=== PATIENT | male | born 1985 | race Caucasian/White ===

== ENCOUNTER → 2022-02-27 | Outpatient (CLI) | payer OTHER ==
[2022-02-27 18:26] LABS: HCT 37.1 % (39.6-50.0); HGB 11.6 g/dL (13.0-17.0); MCH 35.7 pg (27.0-32.0); MCHC 31.3 g/dL (32.0-37.0); MCV 114.2 fL (80.0-97.0); Mean Platelet Volume 12.5 fL (9.5-12.2); NRBC Per 100 WBC 0 /100 WBCS (0.0-0.0); Platelet Count 228 X 10*3/uL (140-440); RBC 3.25 X 10*6/uL (4.40-5.60); WBC 16.45 X 10*3/uL (4.50-10.00)
[2022-02-27 18:51] LABS: % Iron Saturation 24.26 (15.00-50.00); African American GFR (CKD) 135.5 (60.0-200.0); Albumin/Globulin Ratio 1.28 (1.60-3.17); Blood Urea Nitrogen 13.5 mg/dL (9.0-27.0); Carbon Dioxide 22.5 mmol/L (20.0-27.5); Globulin 3.1 g/dL (1.6-3.3); Non-African American GFR(CKD) 116.9 (60.0-200.0); Potassium 4.5 mmol/L (3.5-5.5); Total Bilirubin 0.5 mg/dL (0.30-1.20); Total Protein 7.1 g/dL (6.2-8.2)
[2022-02-27 19:08] LABS: Basophils # (A) 0.14 X 10*3/uL (0.00-0.10); Basophils % (A) 0.9 %; Eosinophils # (A) 0.28 X 10*3/uL (0.04-0.35); Eosinophils % (A) 1.7 %; Immature Grans, Automated 0.9 %; Lymphocytes # (A) 2.72 X 10*3/uL (0.90-5.00); Lymphocytes % (A) 16.5 %; Monocytes # (A) 0.86 X 10*3/uL (0.20-1.00); Monocytes % (A) 5.2 %; Neutrophils # (A) 12.31 X 10*3/uL (1.80-7.70); Neutrophils % (A) 74.8 %
[2022-02-27 19:09] LABS: Macrocytosis (M) 3+
== END | disposition home or self-care (01) ==
LOC: LABWHC1 11:52
PROVIDERS: ATTEND Family Medicine
DX: D62 Acute posthemorrhagic anemia (principal); K76.6 Portal hypertension; K31.89 Other diseases of stomach and duodenum; R53.1 Weakness
CPT/HCPCS: 36415; 80053; 82306; 82607; 82746; 83540; 83550; 84466; 85025

== ENCOUNTER 2022-03-22 14:35 | Emergency (ER) | payer OTHER ==
[2022-03-22 14:49] VITALS: TEMP 98.8
[2022-03-22 15:13] VITALS: BP 114/79; PULSE 77; RESP 16
--- NOTE | 2022-03-22 15:15 | ED ---
General Adult HPI - General Chief complaint: Abdominal Pain Stated complaint: Lump on L side Time Seen by Provider: 03/22/22 15:14 Source: patient Mode of arrival: wheelchair Limitations: no limitations - History of Present Illness Initial comments: Patient presents to the ED with his father for evaluation. Patient states that he developed sudden onset, left inferolateral chest wall pain when he attempted to sit up from a laying position this morning. Patient states that he felt "a pop" at that time, and he states that he has had pain there ever since. Patient states that his pain is worse with coughing, deep inspiration, sneezing, and changes in position. Patient denies direct chest trauma or fall. Patient denies fever or chills, headache, focal neuro deficit, neck/arm/jaw/back pain, dyspnea, cough or cold symptoms, palpitations, dizziness, abdominal pain, nausea/vomiting/diarrhea, dysuria or urinary symptoms, leg or calf swelling or pain, or any other symptoms or complaints. - Related Data Home Medications Medication Instructions Recorded Confirmed Acamprosate Calcium [Campral] 666 mg PO BID 03/22/22 03/22/22 Cyanocobalamin (Vitamin B-12) 1,000 mcg PO DAILY 03/22/22 03/22/22 [Vitamin B-12] Folic Acid 1 mg PO DAILY 03/22/22 03/22/22 HYDROcodone/APAP 5-325MG [[place] 1 tab PO DAILY PRN 03/22/22 03/22/22 5-325] Magnesium Oxide [Mag-Ox] 400 mg PO BID 03/22/22 03/22/22 Multivitamins, Thera [Multivitamin 1 tab PO DAILY 03/22/22 03/22/22 (formulary)] Pantoprazole [Protonix] 40 mg PO BID 03/22/22 03/22/22 Thiamine [Vitamin B-1] 100 mg PO DAILY 03/22/22 03/22/22 aMILoride HCL 5 mg PO BID 03/22/22 03/22/22 calcitrioL [Calcitriol] 0.25 mcg PO DAILY 03/22/22 03/22/22 Allergies Allergy/AdvReac Type Severity Reaction Status Date / Time No Known Allergies Allergy Verified 03/22/22 16:25 Review of Systems ROS Statement: Those systems with pertinent positive or pertinent negative responses have been documented in the HPI. ROS Other: All systems not noted in ROS Statement are negative. Past Medical History Past Medical History: Hypertension History of Any Multi-Drug Resistant Organisms: None Reported Past Surgical History: No Surgical Hx Reported, Back Surgery, Orthopedic Surgery Past Psychological History: Anxiety, Bipolar, Depression, Schizophrenia Smoking Status: Current every day smoker Past Alcohol Use History: Daily Past Drug Use History: Marijuana General Exam Limitations: no limitations General appearance: alert, in no apparent distress Head exam: Present: atraumatic, normocephalic Eye exam: Present: normal appearance, EOMI ENT exam: Present: mucous membranes moist Neck exam: Present: other (Trachea is in midline) Respiratory exam: Present: normal lung sounds bilaterally, other (Reproducible left inferolateral chest wall tenderness with mild overlying swelling and ecchymosis; no chest wall crepitation or deformity is appreciated). Absent: respiratory distress, wheezes, rales, rhonchi, stridor Cardiovascular Exam: Present: regular rate, normal rhythm, normal heart sounds, other (Normal radial pulses bilaterally) GI/Abdominal exam: Present: soft. Absent: distended, tenderness, guarding Extremities exam: Present: other (Negative Homans sign bilaterally). Absent: tenderness, pedal edema, calf tenderness Neurological exam: Present: alert, oriented X3. Absent: motor sensory deficit Psychiatric exam: Present: normal affect, normal mood Skin exam: Present: warm, dry, intact Course Vital Signs 03/22/22 03/22/22 14:41 15:12 Temperature 98.8 F Pulse Rate 111 H 77 Respiratory 18 16 Rate Blood Pressure 82/48 114/79 O2 Sat by Pulse 98 97 Oximetry - Reevaluation(s) Reevaluation #1: 03/22/22 16:59 Patient remains alert and breathing comfortably. Patient denies development of any new symptoms while in the ED. Patient and father are aware of the patient's x-ray findings. I have explained to the patient that he has sustained a left seventh rib fracture. I again asked the patient if he could've potentially fallen recently, as simply sitting up from a laying position likely would not have caused a rib fracture. Patient's father states that the patient did fall yesterday while intoxicated, and patient does not recall this fall. Patient and father were counseled about rib fractures, and they were clearly explained return and follow-up instructions. Patient feels comfortable being discharged home with his father at this time. Patient was instructed to follow up closely with a primary care provider. Patient feels comfortable with this plan. Will discharge patient home with a starter pack of Tylenol #3, as well as an incentive spirometer. Medical Decision Making - Radiology Data Left rib x-rays: Acute fracture left seventh rib. Disposition Clinical Impression: Fracture of rib of left side Disposition: HOME SELF-CARE Condition: Stable Instructions (If sedation given, give patient instructions): Rib Fracture (ED) Additional Instructions: Return to the ER immediately should you develop new or worsening pain, shortness of breath, feeling dizzy or faint, or new or worsening symptoms. Follow up closely with your primary care provider. Is patient prescribed a controlled substance at d/c from ED?: No Referrals: None,Stated [Primary Care Provider] - 1-2 days Adrien Chang MD [STAFF PHYSICIAN] - 1-2 days Time of Disposition: 17:04
--- NOTE | 2022-03-22 16:01 | XR ---
EXAMINATION TYPE: XR ribs LT w pa chest xray DATE OF EXAM: 03/22/2022 COMPARISON: NONE HISTORY: Pain TECHNIQUE: 5 views FINDINGS: There is no pleural effusion or pneumothorax. Heart and mediastinum are normal. Lungs are c lear of infiltrate. There is deformity of the left sixth and seventh ribs related to fractures. There is acute fracture l eft lateral seventh rib. Left sixth rib fracture is probably old. IMPRESSION: Acute fracture left seventh rib.
[2022-03-22] MEDS ORDERED: ACET/COD 300 MG/30 MG STARTER PACK 6 TAB BTL PO STA (16:54)
== END 2022-03-22 17:14 | disposition home or self-care (01) ==
LOC: EC 14:35
DX: S22.32XA Fracture of one rib, left side, initial encounter for closed fracture (principal); I10 Essential (primary) hypertension; F17.200 Nicotine dependence, unspecified, uncomplicated; X50.9XXA Other and unspecified overexertion or strenuous movements or postures, initial encounter

== ENCOUNTER 2022-08-20 18:48 | Inpatient (IN) | payer OTHER ==
[2022-08-20] MEDS ORDERED: SODIUM CHLORIDE 0.9% 1,000 ML IV STA (22:34)
--- NOTE | 2022-08-20 22:35 | ED ---
Recheck HPI - General Chief Complaint: Recheck/Abnormal Lab/Rx Stated Complaint: Abnormal labs,sent by [facility] chron[facility] illed [facility] Time Seen by Provider: 08/20/22 22:33 Source: patient, RN notes reviewed, old records reviewed Mode of arrival: ambulatory Limitations: no limitations - History of Present Illness Initial Comments: This is a 36-year-old male to the emergency department for evaluation presents today for evaluation in regards to altered, abnormal lab values. Low platelets alcohol abuse and from [place] where hes in rehab for alcohol MD Complaint: abnormal lab -: unknown Returns Today for: Called Because of Abnormal Lab/Test Context: planned re-check, called for abnormal lab result Associated Symptoms: none Treatments Prior to Arrival: other (0) - Related Data Home Medications Medication Instructions Recorded Confirmed Acamprosate Calcium [Campral] 666 mg PO BID 03/22/22 03/22/22 Cyanocobalamin (Vitamin B-12) 1,000 mcg PO DAILY 03/22/22 03/22/22 [Vitamin B-12] Folic Acid 1 mg PO DAILY 03/22/22 03/22/22 HYDROcodone/APAP 5-325MG [[place] 1 tab PO DAILY PRN 03/22/22 03/22/22 5-325] Magnesium Oxide [Mag-Ox] 400 mg PO BID 03/22/22 03/22/22 Multivitamins, Thera [Multivitamin 1 tab PO DAILY 03/22/22 03/22/22 (formulary)] Pantoprazole [Protonix] 40 mg PO BID 03/22/22 03/22/22 Thiamine [Vitamin B-1] 100 mg PO DAILY 03/22/22 03/22/22 aMILoride HCL 5 mg PO BID 03/22/22 03/22/22 calcitrioL [Calcitriol] 0.25 mcg PO DAILY 03/22/22 03/22/22 Allergies Allergy/AdvReac Type Severity Reaction Status Date / Time No Known Allergies Allergy Verified 03/22/22 16:25 Review of Systems ROS Statement: Those systems with pertinent positive or pertinent negative responses have been documented in the HPI. ROS Other: All systems not noted in ROS Statement are negative. Past Medical History Past Medical History: Hypertension Additional Past Medical History / Comment(s): etoh abuse History of Any Multi-Drug Resistant Organisms: None Reported Past Surgical History: No Surgical Hx Reported, Back Surgery, Orthopedic Surgery Past Psychological History: Anxiety, Bipolar, Depression, Schizophrenia Smoking Status: Current every day smoker Past Alcohol Use History: Daily Past Drug Use History: Marijuana General Exam Limitations: no limitations General appearance: alert, in no apparent distress Head exam: Present: atraumatic, normocephalic, normal inspection Eye exam: Present: normal appearance, PERRL, EOMI. Absent: scleral icterus, conjunctival injection, periorbital swelling ENT exam: Present: normal exam, mucous membranes moist Neck exam: Present: normal inspection. Absent: tenderness, meningismus, lymphadenopathy Respiratory exam: Present: normal lung sounds bilaterally. Absent: respiratory distress, wheezes, rales, rhonchi, stridor Cardiovascular Exam: Present: regular rate, normal rhythm, normal heart sounds. Absent: systolic murmur, diastolic murmur, rubs, gallop, clicks GI/Abdominal exam: Present: soft, normal bowel sounds. Absent: distended, tenderness, guarding, rebound, rigid Extremities exam: Present: normal inspection, full ROM, normal capillary refill. Absent: tenderness, pedal edema, joint swelling, calf tenderness Back exam: Present: normal inspection Neurological exam: Present: alert, oriented X3, CN II-XII intact Psychiatric exam: Present: normal affect, normal mood Skin exam: Present: warm, dry, intact, normal color. Absent: rash Course Vital Signs 08/20/22 08/20/22 19:23 23:14 Temperature 98.4 F Pulse Rate 93 79 Respiratory 16 16 Rate Blood Pressure 122/84 136/99 O2 Sat by Pulse 97 97 Oximetry - Reevaluation(s) Reevaluation #1: 08/20/22 23:32 Medical records reviewed Reevaluation #2: 08/21/22 00:05 patient with no change here in the ED Reevaluation #3: 08/21/22 00:05 patient informed of results and uestions answered - Consultations Consultation #1: spoke w CARIE dary for admission Medical Decision Making - Medical Decision Making 36 male to the emergency department for evaluation of thrombocytopenia secondary to alcohol abuse, patient be observation and for resuscitation possible alcohol withdrawal, recheck of lab values - Lab Data Result diagrams: 08/20/22 23:11 08/20/22 23:11 Lab Results 08/20/22 08/20/22 08/20/22 Range/Units 23:11 23:11 23:11 WBC 3.3 L (3.8-10.6) k/uL RBC 2.98 L (4.30-5.90) m/uL Hgb 11.5 L (13.0-17.5) gm/dL Hct 35.8 L (39.0-53.0) % MCV 120.3 H (80.0-100.0) fL MCH 38.6 H (25.0-35.0) pg MCHC 32.1 (31.0-37.0) g/dL RDW 14.4 (11.5-15.5) % Plt Count 72 L (150-450) k/uL MPV 11.7 Neutrophils % [employer]IC[employer] HELPER Neutrophils % (Manual) 61 % Band Neuts % (Manual) 2 % Lymphocytes % [employer] SERVICER HELPER Lymphocytes % (Manual) 17 % Monocytes % [employer] SERVICER HELPER Monocytes % (Manual) 20 % Eosinophils % [employer]OVE SERVICER HELPER Basophils % [employer]OVE SERVICER HELPER Neutrophils # [employer] SERVICER HELPER Neutrophils # (Manual) 2.00 (1.3-7.7) k/uL Lymphocytes # [employer] SERVICER HELPER Lymphocytes # (Manual) 0.56 L (1.0-4.8) k/uL Monocytes # [employer] SERVICER HELPER Monocytes # (Manual) 0.66 (0-1.0) k/uL Eosinophils # [employer]OVE SERVICER HELPER Basophils # [employer] SERVICER HELPER Nucleated RBCs 0 (0-0) /100 WBC Manual Slide Review Performed Polychromasia Present Macrocytosis Marked A Sodium 139 (137-145) mmol/L Potassium 3.3 L (3.5-5.1) mmol/L Chloride 110 H (98-107) mmol/L Carbon Dioxide 15 L (22-30) mmol/L Anion Gap 14 mmol/L BUN 16 (9-20) mg/dL Creatinine 1.05 (0.66-1.25) mg/dL Est GFR (CKD-EPI)AfAm >90 (>60 ml/min/1.73 sqM) Est GFR (CKD-EPI)NonAf >90 (>60 ml/min/1.73 sqM) Glucose 95 (74-99) mg/dL Plasma Lactic Acid Wily 1.1 (0.7-2.0) mmol/L Calcium 9.4 (8.4-10.2) mg/dL Phosphorus 3.5 (2.5-4.5) mg/dL Magnesium 1.8 (1.6-2.3) mg/dL Total Bilirubin 1.7 H (0.2-1.3) mg/dL AST 405 H (17-59) U/L ALT 120 H (4-49) U/L Alkaline Phosphatase 323 H (38-126) U/L Total Protein 7.1 (6.3-8.2) g/dL Albumin 4.0 (3.5-5.0) g/dL Lipase 406 H (23-300) U/L Serum Alcohol <10 mg/dL - EKG Data -: EKG Interpreted by Me (EKG is sinus 77 KS 165 QRS 102 QTC 417) Disposition Clinical Impression: Hypokalemia, Pancreatitis, Thrombocytopenia, Alcohol abuse Disposition: ADMITTED IP TO THIS HOSP Condition: Fair Is patient prescribed a controlled substance at d/c from ED?: No Referrals: None,Stated [Primary Care Provider] - 1-2 days Time of Disposition: 00:05
[2022-08-20 23:32] LABS: ALT 120 U/L (4-49); AST 405 U/L (17-59); African American GFR (CKD) >90 (>60 ml/min/1.73 sqM); Alcohol <10 mg/dL; Alkaline Phosphatase 323 U/L (38-126); Anion Gap 14 mmol/L; Blood Urea Nitrogen 16 mg/dL (9-20); Calcium 9.4 mg/dL (8.4-10.2); Carbon Dioxide 15 mmol/L (22-30); Chloride 110 mmol/L (98-107); Glucose 95 mg/dL (74-99); Lipase 406 U/L (23-300); Magnesium 1.8 mg/dL (1.6-2.3); Non-African American GFR(CKD) >90 (>60 ml/min/1.73 sqM); Phosphorus 3.5 mg/dL (2.5-4.5); Potassium 3.3 mmol/L (3.5-5.1); Sodium 139 mmol/L (137-145); Total Bilirubin 1.7 mg/dL (0.2-1.3); Total Protein 7.1 g/dL (6.3-8.2)
[2022-08-20 23:45] LABS: HCT 35.8 % (39.0-53.0); HGB 11.5 gm/dL (13.0-17.5); MCH 38.6 pg (25.0-35.0); MCHC 32.1 g/dL (31.0-37.0); MCV 120.3 fL (80.0-100.0); Macrocytosis Marked; Mean Platelet Volume 11.7; RBC 2.98 m/uL (4.30-5.90); RDW 14.4 % (11.5-15.5); WBC 3.3 k/uL (3.8-10.6)
[2022-08-20 23:50] LABS: Platelet Count 72 k/uL (150-450)
[2022-08-20 23:59] LABS: Band Neutrophils % 2 %; Lymphocytes # (M) 0.56 k/uL (1.0-4.8); Monocytes # (M) 0.66 k/uL (0-1.0); Neutrophils % (M) 61 %; Nucleated Red Blood Cells 0 /100 WBC (0-0); Polychromasia Present; Total Cells Counted 100
[2022-08-21] MEDS ORDERED: NALOXONE 0.4 MG/ML 1 ML VIAL IV PRN (00:03)
[2022-08-21] MEDS ORDERED: LORazepam 2 MG/ML INJ IV PRN ×3 (00:03)
[2022-08-21] MEDS ORDERED: ONDANSETRON 4 MG/2 ML VIAL IVP PRN (00:03)
[2022-08-21] MEDS ORDERED: THIAMINE 100 MG/ML 2 ML VIAL IM STA (00:03)
[2022-08-21] MEDS ORDERED: POTASSIUM BICARBONATE/CIT AC 20 MEQ TABLET.EFF PO ONE (00:07)
[2022-08-21] MEDS: SODIUM CHLORIDE 0.9% 1,000 ML IV SCH ×3 (01:11→16:10)
[2022-08-21] MEDS: MULTIVITAMINS, THERA 1 EACH TAB PO SCH (09:33)
[2022-08-21] MEDS: THIAMINE 100 MG TAB PO SCH (09:33)
[2022-08-21] MEDS: FOLIC ACID 1 MG TAB PO SCH (09:33)
--- NOTE | 2022-08-21 11:35 | P.HP ---
Psychiatric H&P - . H&P Date: 08/21/22 History & Physical: Allergies Allergy/AdvReac Type Severity Reaction Status Date / Time No Known Allergies Allergy Verified 08/21/22 07:05 Vital Signs Temp 99.8 F H 08/21/22 07:45 Pulse 89 08/21/22 07:45 Resp 16 08/21/22 07:45 BP 137/73 08/21/22 07:45 Pulse Ox 96 08/21/22 07:45 FiO2 Intake & Output 08/20/22 08/21/22 08/21/22 18:59 06:59 18:59 Weight 54.431 kg Other: # Voids 2 Laboratory Last Values WBC 3.3 k/uL (3.8-10.6) L 08/20/22 23:11 RBC 2.98 m/uL (4.30-5.90) L 08/20/22 23:11 Hgb 11.5 gm/dL (13.0-17.5) L 08/20/22 23:11 Hct 35.8 % (39.0-53.0) L 08/20/22 23:11 MCV 120.3 fL (80.0-100.0) H 08/20/22 23:11 MCH 38.6 pg (25.0-35.0) H 08/20/22 23:11 MCHC 32.1 g/dL (31.0-37.0) 08/20/22 23:11 RDW 14.4 % (11.5-15.5) 08/20/22 23:11 Plt Count 72 k/uL (150-450) L 08/20/22 23:11 MPV 11.7 08/20/22 23:11 Neutrophils % IMMIGRATION SPECIALIST 08/20/22 23:11 Neutrophils % (Manual) 61 % 08/20/22 23:11 Band Neuts % (Manual) 2 % 08/20/22 23:11 Lymphocytes % IMMIGRATION SPECIALIST 08/20/22 23:11 Lymphocytes % (Manual) 17 % 08/20/22 23:11 Monocytes % IMMIGRATION SPECIALIST 08/20/22 23:11 Monocytes % (Manual) 20 % 08/20/22 23:11 Eosinophils % IMMIGRATION SPECIALIST 08/20/22 23:11 Basophils % IMMIGRATION SPECIALIST 08/20/22 23:11 Neutrophils # IMMIGRATION SPECIALIST 08/20/22 23:11 Neutrophils # (Manual) 2.00 k/uL (1.3-7.7) 08/20/22 23:11 Lymphocytes # IMMIGRATION SPECIALIST 08/20/22 23:11 Lymphocytes # (Manual) 0.56 k/uL (1.0-4.8) L 08/20/22 23:11 Monocytes # IMMIGRATION SPECIALIST 08/20/22 23:11 Monocytes # (Manual) 0.66 k/uL (0-1.0) 08/20/22 23:11 Eosinophils # IMMIGRATION SPECIALIST 08/20/22 23:11 Basophils # IMMIGRATION SPECIALIST 08/20/22 23:11 Nucleated RBCs 0 /100 WBC (0-0) 08/20/22 23:11 Manual Slide Review Performed 08/20/22 23:11 Polychromasia Present 08/20/22 23:11 Macrocytosis Marked A 08/20/22 23:11 Sodium 139 mmol/L (137-145) 08/20/22 23:11 Potassium 3.3 mmol/L (3.5-5.1) L 08/20/22 23:11 Chloride 110 mmol/L (98-107) H 08/20/22 23:11 Carbon Dioxide 15 mmol/L (22-30) L 08/20/22 23:11 Anion Gap 14 mmol/L 08/20/22 23:11 BUN 16 mg/dL (9-20) 08/20/22 23:11 Creatinine 1.05 mg/dL (0.66-1.25) 08/20/22 23:11 Est GFR (CKD-EPI)AfAm >90 (>60 ml/min/1.73 sqM) 08/20/22 23:11 Est GFR (CKD-EPI)NonAf >90 (>60 ml/min/1.73 sqM) 08/20/22 23:11 Glucose 95 mg/dL (74-99) 08/20/22 23:11 Plasma Lactic Acid Wily 1.1 mmol/L (0.7-2.0) 08/20/22 23:11 Calcium 9.4 mg/dL (8.4-10.2) 08/20/22 23:11 Phosphorus 3.5 mg/dL (2.5-4.5) 08/20/22 23:11 Magnesium 1.8 mg/dL (1.6-2.3) 10/12/22 23:11 Total Bilirubin 1.7 mg/dL (0.2-1.3) H 08/20/22 23:11 AST 405 U/L (17-59) H 08/20/22 23:11 ALT 120 U/L (4-49) H 08/20/22 23:11 Alkaline Phosphatase 323 U/L (38-126) H 08/20/22 23:11 Ammonia 66 umol/L (<30) H 08/21/22 00:07 Total Protein 7.1 g/dL (6.3-8.2) 08/20/22 23:11 Albumin 4.0 g/dL (3.5-5.0) 08/20/22 23:11 Lipase 406 U/L (23-300) H 08/20/22 23:11 Serum Alcohol <10 mg/dL 08/20/22 23:11 08/21/22 11:35 IDENTIFYING DATA: This patient is a legally , currently unemployed, 36-year-old male with significant history of alcohol use disorder presented to the hospital from [facility] for thrombocytopenia HISTORY OF PRESENT ILLNESS: The patient presented to the hospital on 08/20/2022, brought in to our hospital from [place] due to having abnormal labs. Patient is noted to be Thrombocytopenic and was brought to the ED. Psychiatry and consulted for "psych." Currently, the patient is not reporting any suicidal or homicidal ideation, intention, and/or plan. He is future and goal oriented and is expressing strong desire to quit alcohol that he may be able to deal with the ongoing separation with his significant other. He reports the children are involved and therefore he wants to become the best person he can be by quitting alcohol. He reports that he has been in [place] for the past week and is also involved in AA and NA. The patient is currently denying any withdrawal symptoms. He reports no delirium tremens or any seizures at this time. In reg ards to other psychiatric symptoms, the patient is denying any symptoms of merlin or hypomania. He reports no history of auditory or visual hallucinations. He denies any paranoia or other delusions. He states that he is here in the hospital for a medical workup due to his low platelets and for no other reason. PAST PSYCHIATRIC HISTORY: Patient has a history of anxiety, bipolar disorder, depression, and schizophrenia however this is compounded by his ongoing substance abuse. The patient is currently on a regimen of campral at home. Patient denies any previous psychiatric hospitalizations. Patient denies any psychiatric outpatient follow-up. Patient denies any history of suicide attempts in the past. PAST MEDICAL HISTORY: Past Medical History: Hypertension Additional Past Medical History / Comment(s): etoh abuse History of Any Multi-Drug Resistant Organisms: None Reported Past Surgical History: No Surgical Hx Reported, Back Surgery, Orthopedic Surgery Past Psychological History: Anxiety, Bipolar, Depression, Schizophrenia Smoking Status: Current every day smoker Past Alcohol Use History: Daily Past Drug Use History: Marijuana ALLERGIES: NO KNOWN DRUG ALLERGIES CHEMICAL DEPENDENCY HISTORY: Patient's drug of choice is whiskey. The patient reports that he has been drinking up to a gallon of whiskey per day prior to checking in at rehab. He also reports occasional marijuana use and tobacco use. He denies any other illicit drug use. FAMILY PSYCHIATRIC/SUBSTANCE USE HISTORY: No reported family psychiatric history SOCIAL HISTORY: Patient is currently in the process of with his . He reports that he has 2 kids. MENTAL STATUS EXAM: General Appearance: Patient appears to be stated age is alert, pleasant, and cooperative. Patient appears to have fair hygiene and grooming wearing hospital gown with fair eye contact. Behavior: Patient is calmly lying in bed without any agitated behavior. Speech: Patient's speech is fluent and nonpressured. Mood/Affect: Patient reports their mood is "doing all right", affect is congruent and euthymic Suicidality/Homicidality: Patient denies having any suicidal or homicidal ideation intent or plan. Perceptions: Patient denies any visual hallucinations and denies any auditory hallucinations Though content/process: There is no evidence of any delusional thought content and thought process is linear and goal-directed. Memory and concentration: AOX3, grossly intact for the purposes of this session. Can spell "WORLD" backwards Judgment and insight: good IMPRESSIONS: Alcohol use disorder Thrombocytopenia PLAN: -At this time patient DOES NOT meet criteria for inpatient psychiatric admission. Patient is not presenting with any imminent risk of harm to self or others. He is currently alert and oriented in all spheres and is calm and cooperative throughout the psychiatric evaluation. The patient continues to desire to receive substance abuse treatment and rehabilitation. -Would recommend the following medication changes/additions: No medication recommendations were made at this time. Consider the reinitiation of Compral when deemed appropriate. -Continue 1:1 sitter for safety -Psychiatry will sign off at this point, please contact with any questions. 08/21/22 11:35
--- NOTE | 2022-08-21 13:13 | P.CN ---
Psychiatric Consult - . Consult date: 08/21/22 Consult:: 08/21/22 13:12 Entering this note as a correction in note type for Dr Fall. Please see consult note below performed and reported by Dr Fall on 08/21 "IDENTIFYING DATA: This patient is a legally , currently unemployed, 36-year-old male with significant history of alcohol use disorder presented to the hospital from [facility] for thrombocytopenia HISTORY OF PRESENT ILLNESS: The patient presented to the hospital on 08/20/2022, brought in to our hospital from [place] due to having abnormal labs. Patient is noted to be Thrombocytopenic and was brought to the ED. Psychiatry and consulted for "psych." Currently, the patient is not reporting any suicidal or homicidal ideation, intention, and/or plan. He is future and goal oriented and is expressing strong desire to quit alcohol that he may be able to deal with the ongoing separation with his significant other. He reports the children are involved and therefore he wants to become the best person he can be by quitting alcohol. He reports that he has been in [place] for the past week and is also involved in AA and NA. The patient is currently denying any withdrawal symptoms. He reports no delirium tremens or any seizures at this time. In regards to other psychiatric symptoms, the patient is denying any symptoms of merlin or hypomania. He reports no history of auditory or visual hallucinations. He denies any paranoia or other delusions. He states that he is here in the hospital for a medical workup due to his low platelets and for no other reason. PAST PSYCHIATRIC HISTORY: Patient has a history of anxiety, bipolar disorder, depression, and schizophrenia however this is compounded by his ongoing substance abuse. The patient is currently on a regimen of campral at home. Patient denies any previous psychiatric hospitalizations. Patient denies any psychiatric outpatient follow-up. Patient denies any history of suicide attempts in the past. PAST MEDICAL HISTORY: Past Medical History: Hypertension Additional Past Medical History / Comment(s): etoh abuse History of Any Multi-Drug Resistant Organisms: None Reported Past Surgical History: No Surgical Hx Reported, Back Surgery, Orthopedic Surgery Past Psychological History: Anxiety, Bipolar, Depression, Schizophrenia Smoking Status: Current every day smoker Past Alcohol Use History: Daily Past Drug Use History: Marijuana ALLERGIES: NO KNOWN DRUG ALLERGIES CHEMICAL DEPENDENCY HISTORY: Patient's drug of choice is whiskey. The patient reports that he has been drinking up to a gallon of whiskey per day prior to checking in at rehab. He also reports occasional marijuana use and tobacco use. He denies any other illicit drug use. FAMILY PSYCHIATRIC/SUBSTANCE USE HISTORY: No reported family psychiatric history SOCIAL HISTORY: Patient is currently in the process of with his . He reports that he has 2 kids. MENTAL STATUS EXAM: General Appearance: Patient appears to be stated age is alert, pleasant, and cooperative. Patient appears to have fair hygiene and grooming wearing hospital gown with fair eye contact. Behavior: Patient is calmly lying in bed without any agitated behavior. Speech: Patient's speech is fluent and nonpressured. Mood/Affect: Patient reports their mood is "doing all right", affect is congruent and euthymic Suicidality/Homicidality: Patient denies having any suicidal or homicidal ideation intent or plan. Perceptions: Patient denies any visual hallucinations and denies any auditory hallucinations Though content/process: There is no evidence of any delusional thought content and thought process is linear and goal-directed. Memory and concentration: AOX3, grossly intact for the purposes of this session. Can spell "WORLD" backwards Judgment and insight: good IMPRESSIONS: Alcohol use disorder Thrombocytopenia PLAN: -At this time patient DOES NOT meet criteria for inpatient psychiatric admission. Patient is not presenting with any imminent risk of harm to self or others. He is currently alert and oriented in all spheres and is calm and cooperative throughout the psychiatric evaluation. The patient continues to desire to receive substance abuse treatment and rehabilitation. -Would recommend the following medication changes/additions: No medication recommendations were made at this time. Consider the reinitiation of Compral when deemed appropriate. -Continue 1:1 sitter for safety -Psychiatry will sign off at this point, please contact with any questions."
[2022-08-21] MEDS: LACTULOSE 20 GM/30 ML CUP PO SCH ×2 (16:10→22:30)
[2022-08-21] MEDS ORDERED: LORazepam 1 MG/0.5 ML VIAL IV PRN ×3 (18:04→18:05)
[2022-08-21] MEDS: PANTOPRAZOLE 40 MG TABLET PO SCH (18:27)
--- NOTE | 2022-08-21 21:48 | P.HPIM ---
History of Present Illness H&P Date: 08/21/22 Chief Complaint: Low platelets Patient is a 36-year-old male with a known history of hypertension, alcohol abuse who is currently at [facility], anxiety/depression schizophrenia and currently everyday smoker and daily marijuana use and alcohol abuse was sent to ER due to abnormal labs. Patient was found to have low platelets and was sent to ER. Patient otherwise denied any complaints of chest pain or shortness of breath. No nausea vomiting abdominal pain. No hematemesis or melena. No bruising of the skin. EKG showed sinus rhythm Laboratory pressure WBC 3.3 hemoglobin 11.5 and platelets 72. MCV 120.3 Sodium 139 potassium 3.3 chloride 110 bicarb is 15 BUN 16 and creatinine 1.05 Total bilirubin level is 1.7 AST 405 ALT 120 alk phos 323. Ammonia 66 Lipase level is 406 Serum alcohol is less than 10. Review of Systems Constitutional: Patient denies any fever or chills . no Generalized weakness. Abdomen: Patient denied any nausea or vomiting or abd. pain Cardiovascular: Patient denies any chest pain or short of breath no pa lpitations. Respiratory: patient denied any cough . no sputum production. No shortness of breath Neurologic: Patient denied any numbness or tingling headache. Musculoskeletal: Patient denies any complaints of joint swelling or deformity. Skin: Negative Psychiatric: Negative Endocrine: No heat or cold intolerance. No recent weight gain. Genitourinary: No dysuria or hematuria. All other 14 point ROS negative except the above Past Medical History Past Medical History: Hypertension Additional Past Medical History / Comment(s): etoh abuse History of Any Multi-Drug Resistant Organisms: None Reported Past Surgical History: No Surgical Hx Reported, Back Surgery, Orthopedic Surgery Past Psychological History: Anxiety, Bipolar, Depression, Schizophrenia Smoking Status: Current every day smoker Past Alcohol Use History: Daily Past Drug Use History: Marijuana Medications and Allergies Home Medications Medication Instructions Recorded Confirmed Type Acamprosate Calcium [Campral] 666 mg PO BID 03/22/22 08/21/22 History Cyanocobalamin (Vitamin B-12) 1,000 mcg PO DAILY 03/22/22 08/21/22 History [Vitamin B-12] Folic Acid 1 mg PO DAILY 03/22/22 08/21/22 History Magnesium Oxide [Mag-Ox] 400 mg PO BID 03/22/22 08/21/22 History Pantoprazole [Protonix] 40 mg PO AC-BID 03/22/22 08/21/22 History Thiamine [Vitamin B-1] 100 mg PO DAILY 03/22/22 08/21/22 History aMILoride HCL 5 mg PO BID 03/22/22 08/21/22 History calcitrioL [Calcitriol] 0.25 mcg PO DAILY 03/22/22 08/21/22 History Lactulose 20 gm PO BID 08/21/22 08/21/22 History Allergies Allergy/AdvReac Type Severity Reaction Status Date / Time No Known Allergies Allergy Verified 08/21/22 07:05 Physical Exam Vitals: Vital Signs Temp Pulse Resp BP Pulse Ox 08/21/22 05:27 129/85 08/20/22 23:14 79 16 136/99 97 08/20/22 19:23 98.4 F 93 16 122/84 97 Intake and Output 08/20/22 08/21/22 08/21/22 22:59 06:59 14:59 Other: Weight 54.431 kg PHYSICAL EXAMINATION: Patient is lying in the bed comfortably, no acute distress, awake alert and oriented.. HEENT: Normocephalic. Neck is supple. Pupils reactive. Nostrils clear. Oral cavity is moist. Neck reveals no JVD, carotid bruits, or thyromegaly. CHEST EXAMINATION: Trachea is central. Symmetrical expansion. Lung fierro clear to auscultation and percussion. CARDIAC: Normal S1, S2 with no gallops. No murmurs ABDOMEN: Soft. Bowel sounds present. Nontender. No organomegaly. No abdominal bruits. Extremities: reveal no edema. No clubbing or cyanosis Neurologically awake, alert, oriented x3 with well-coordinated movements. No focal deficits noted Skin: No rash or skin lesions. Psychiatric: Coperative. Nonsuicidal, Musculoskeletal: No joint swelling or deformity. Normal range of motion. Results CBC & Chem 7: 08/20/22 23:11 08/20/22 23:11 Labs: Abnormal Lab Results - Last 24 Hours (Table) 08/20/22 08/20/22 08/21/22 Range/Units 23:11 23:11 00:07 WBC 3.3 L (3.8-10.6) k/uL RBC 2.98 L (4.30-5.90) m/uL Hgb 11.5 L (13.0-17.5) gm/dL Hct 35.8 L (39.0-53.0) % MCV 120.3 H (80.0-100.0) fL MCH 38.6 H (25.0-35.0) pg Plt Count 72 L (150-450) k/uL Lymphocytes # (Manual) 0.56 L (1.0-4.8) k/uL Macrocytosis Marked A Potassium 3.3 L (3.5-5.1) mmol/L Chloride 110 H (98-107) mmol/L Carbon Dioxide 15 L (22-30) mmol/L Total Bilirubin 1.7 H (0.2-1.3) mg/dL AST 405 H (17-59) U/L ALT 120 H (4-49) U/L Alkaline Phosphatase 323 H (38-126) U/L Ammonia 66 H (<30) umol/L Lipase 406 H (23-300) U/L Thrombosis Risk Factor Assmnt - DVT/VTE Prophylaxis DVT/VTE Prophylaxis: Mechanical Prophylaxis ordered Assessment and Plan Assessment: Thrombocytopenia likely due to alcoholic liver disease. Platelet count 72 Macrocytosis. Recent B12 and folate levels within normal limits. Elevated liver enzymes secondary to alcoholic hepatitis Hypokalemia Hyperammonemia Mild elevated lipase level with no complaints of abdominal pain. Hypertension Severe alcohol abuse History of marijuana use Currently everyday smoker Anxiety/depression/bipolar disorder and schizophrenia DVT prophylaxis SCDs Plan: Patient will be getting IV hydration with normal saline Continue with thiamine and multivitamins. Follow-up CBC tomorrow and replace potassium. Thrombocytopenia likely due to alcoholic liver disease. Continue to follow closely. Patient was seen by psychiatry due to history of depression and schizophrenia and recommendedno inpatient psychiatric admission. Continue to follow closely..Continue with alcohol withdrawal protocol. Time with Patient: Greater than 30
[2022-08-22] MEDS: SODIUM CHLORIDE 0.9% 1,000 ML IV SCH ×2 (04:59→08:49)
[2022-08-22 06:58] VITALS: RESP 16
[2022-08-22] MEDS: FOLIC ACID 1 MG TAB PO SCH (08:48)
[2022-08-22] MEDS: PANTOPRAZOLE 40 MG TABLET PO SCH (08:48)
[2022-08-22] MEDS: MULTIVITAMINS, THERA 1 EACH TAB PO SCH (08:48)
[2022-08-22] MEDS: LACTULOSE 20 GM/30 ML CUP PO SCH ×2 (08:48→08:52)
[2022-08-22] MEDS: THIAMINE 100 MG TAB PO SCH (08:48)
[2022-08-22] MEDS ORDERED: CHOLECALCIFEROL 25 MCG (1000 IU) TABLET PO SCH (09:00)
[2022-08-22 09:27] LABS: African American GFR (CKD) 135.1 (60.0-200.0); Albumin 3.6 g/dL (3.8-4.9); Albumin/Globulin Ratio 1.24 (1.60-3.17); Anion Gap 10.3 mmol/L (10.00-18.00); BUN/Creat Ratio 14.38 Ratio (12.00-20.00); Blood Urea Nitrogen 11.5 mg/dL (9.0-27.0); Carbon Dioxide 16.7 mmol/L (20.0-27.5); Globulin 2.9 g/dL (1.6-3.3); Magnesium 1.4 mg/dL (1.5-2.4); Non-African American GFR(CKD) 116.6 (60.0-200.0); Phosphorus 1.9 mg/dL (2.4-5.1); Potassium 3.5 mmol/L (3.5-5.5); Total Bilirubin 1.3 mg/dL (0.30-1.20); Total Protein 6.5 g/dL (6.2-8.2)
[2022-08-22] MEDS ORDERED: Magnesium Replacement Protocol 1 EACH MISC MISCELLANE PRN (10:02)
[2022-08-22 10:14] LABS: Hepatitis A Antibody IgM Nonreactive (Nonreactive); Hepatitis B Core IgM Nonreactive (Nonreactive); Hepatitis B Surface Antigen Nonreactive (Nonreactive); Hepatitis C IgG Antibody Nonreactive (Nonreactive)
[2022-08-22] MEDS ORDERED: ACAMPROSATE CALCIUM 333 MG TABLET.DR PO SCH (10:15)
[2022-08-22] MEDS: MAGNESIUM SULFATE-D5W PMX 1 GM in DEXTROSE/WATER 1 100ML.BAG IVPB SCH ×3 (11:10→13:59)
[2022-08-22 11:14] LABS: Basophils # (A) 0.05 X 10*3/uL (0.00-0.10); Basophils % (A) 1.2 %; Eosinophils # (A) 0.05 X 10*3/uL (0.04-0.35); Eosinophils % (A) 1.2 %; HCT 33.8 % (39.6-50.0); HGB 11.2 g/dL (13.0-17.0); Immature Grans, Automated 1.2 %; Immature Platelet Fraction 13.2 % (1.1-6.1); Lymphocytes # (A) 1.37 X 10*3/uL (0.90-5.00); Lymphocytes % (A) 32.2 %; MCH 39.2 pg (27.0-32.0); MCHC 33.1 g/dL (32.0-37.0); MCV 118.2 fL (80.0-97.0); Mean Platelet Volume 12.4 fL (9.5-12.2); Monocytes # (A) 0.68 X 10*3/uL (0.20-1.00); NRBC Per 100 WBC 0 /100 WBCS (0.0-0.0); Neutrophils # (A) 2.05 X 10*3/uL (1.80-7.70); Neutrophils % (A) 48.2 %; Platelet Count 80 X 10*3/uL (140-440); RBC 2.86 X 10*6/uL (4.40-5.60); RDW 14.3 % (11.5-14.5); WBC 4.25 X 10*3/uL (4.50-10.00)
[2022-08-22 11:36] VITALS: BP 129/84; PULSE 58; TEMP 98.8
--- NOTE | 2022-08-22 13:06 | P.DS ---
Providers Date of admission: 08/21/22 00:04 Expected date of discharge: 08/22/22 Attending physician: Courtney Duarte Consults: 08/21/22 00:03 Consult Physician Routine Consulting Provider: Silas Fall Reason/Comments: psych Do you want consulting provider notified?: Yes Primary care physician: Stated None Hospital Course: Final diagnosis Thrombocytopenia likely due to alcoholic liver disease. Platelet count now 80 Macrocytosis. Recent B12 and folate levels within normal limits. Elevated liver enzymes secondary to alcoholic hepatitis Hypokalemia, improved Hyperammonemia, improved Mild elevated lipase level with no complaints of abdominal pain. Hypertension Severe alcohol abuse History of marijuana use Currently everyday smoker Anxiety/depression/bipolar disorder and schizophrenia DVT prophylaxis Full code Discharge disposition Patient is being discharged in a stable condition with guarded prognosis to [facility]. Patient will follow-up with primary care provider in the outpatient setting upon discharge. Patient is to have repeat CBC done to monitor platelet count in the next 2-3 days and prescription was provided. Total time taken is greater than 35 minutes. Hospital course This is a 36-year-old male who was recently admitted with abnormal labs as platelets were found to be low. Patient was at alcohol rehab at [facility] and found to have abnormal labs. Platelets are currently 80 and recommend repeat labs in the next 2-3 days. Currently no reports of chest pain, shortness of breath, or palpitations. Patient is afebrile. No reports of nausea or vomiting and patient is tolerating diet. Patient will be going to [facility] today. Physical exam: Gen: This is a 36-year-old male awake, alert and oriented 3, well-developed, well-nourished HEENT: Head is atraumatic, normocephalic. Pupils equal, round. Sclerae is anicteric. NECK: Supple. No JVD. No lymphadenopathy. No thyromegaly. LUNGS: Clear to auscultation. No wheezes or rhonchi. No intercostal retractions. HEART: Regular rate and rhythm. No murmur. ABDOMEN: Soft. Bowel sounds are present. No masses. No tenderness. EXTREMITIES: No pedal edema. No calf tenderness. NEUROLOGICAL: Patient is awake, alert and oriented x3. Cranial nerves 2 through 12 are grossly intact. Please refer to medication reconciliation sheet for a list of medications. The impression and plan of care has been dictated by Salma Morocho, Nurse Practitioner as directed. Dr. Ramses MD I have performed a history and examination and MDM of this patient, discussed t he same with the dictator, and agree with the dictator's assessment and plan as written ,documented as a scribe. Based on total visit time, I have performed more than 50% of the visit. Patient Condition at Discharge: Fair Plan - Discharge Summary Discharge Rx Participant: Yes New Discharge Prescriptions: New Multivitamins, Thera [Multivitamin (formulary)] 1 each PO DAILY tab Cholecalciferol [Vitamin D3 (25 Mcg = 1000 Iu)] 25 mcg PO DAILY tab Continue Thiamine [Vitamin B-1] 100 mg PO DAILY calcitrioL [Calcitriol] 0.25 mcg PO DAILY Magnesium Oxide [Mag-Ox] 400 mg PO BID Acamprosate Calcium [Campral] 666 mg PO BID Lactulose 20 gm PO BID Cyanocobalamin (Vitamin B-12) [Vitamin B-12] 1,000 mcg PO DAILY aMILoride HCL 5 mg PO BID Pantoprazole [Protonix] 40 mg PO AC-BID Folic Acid 1 mg PO DAILY Discharge Medication List Acamprosate Calcium [Campral] 666 mg PO BID 03/22/22 [History] Cyanocobalamin (Vitamin B-12) [Vitamin B-12] 1,000 mcg PO DAILY 03/22/22 [History] Folic Acid 1 mg PO DAILY 03/22/22 [History] Magnesium Oxide [Mag-Ox] 400 mg PO BID 03/22/22 [History] Pantoprazole [Protonix] 40 mg PO AC-BID 03/22/22 [History] Thiamine [Vitamin B-1] 100 mg PO DAILY 03/22/22 [History] aMILoride HCL 5 mg PO BID 03/22/22 [History] calcitrioL [Calcitriol] 0.25 mcg PO DAILY 03/22/22 [History] Lactulose 20 gm PO BID 08/21/22 [History] Cholecalciferol [Vitamin D3 (25 Mcg = 1000 Iu)] 25 mcg PO DAILY tab 08/22/22 [Rx] Multivitamins, Thera [Multivitamin (formulary)] 1 each PO DAILY tab 08/22/22 [Rx] Follow up Appointment(s)/Referral(s): None,Stated [Primary Care Provider] - 1-2 days Ambulatory/Diagnostic Orders: Complete Blood Count w/diff [LAB.AMB] Time Frame: 2 Days, Location: None Selected Activity/Diet/Wound Care/Special Instructions: Patient is returning to [place] - Activity as tolerated Continue taking medications as prescribed Continue with alcohol rehab Recommend repeat CBC to monitor platelet count in the next 2-3 days Patient needs resources to establish with a primary care provider on discharge Discharge Disposition: OTHER INSTITUTION NOT DEFINED
[2022-08-22 13:56] VITALS: BMI 20.5
[2022-08-22] MEDS ORDERED: MAGNESIUM OXIDE 400 MG TAB PO SCH (21:00)
[2022-08-23] MEDS ORDERED: MAGNESIUM OXIDE 400 MG TAB PO SCH (09:00)
--- NOTE | 2022-08-25 09:34 | CDI ---
Documentation Clarification Form Date: 08/25/2022 09:20:00 AM From: Yolanda Drummond Admit Date: 08/21/2022 12:04:00 AM Patient Name: Luis Woodruff Visit Number: [id number] Discharge Date: 08/22/2022 04:40:00 PM ATTENTION: The Clinical Documentation Specialists (CDI) and [facility] Coding Staff appreciate your assistance in clarifying documentation. Please respond to the clarification below the line at the bottom and electronically sign. The CDI & [facility] Coding staff will review the response and follow-up if needed. Please note: Queries are made part of the Legal Health Record. If you have any questions, please contact the author of this message via ITS. Dr. Wendy Pearce Pancreatitis is documented in the ED notes. Documentation is not carried through chart. Did patient had pancreatitis or was it ruled out. Additional clarification regarding the etiology and acuity of pancreatitis is requested. History/risk factors: alcohol abuse, thrombocytopenia, Clinical Indicators: Amylase/Lipase: Lipase 406, Treatment: IV fluids Consults: Dietary Please clarify if patient had pancreatitis or was it ruled out. If patient did have pancreatitis please clarify the acuity and etiology of the pancreatitis, if known: Acuity [ ] Acute pancreatitis [ ] Acute on Chronic pancreatitis [ ] Chronic pancreatitis [ ] Other, please specify ____ [ x ] Unable to determine Etiology [ ] Alcohol induced pancreatitis [ ] Biliary pancreatitis [ ] Drug induced pancreatitis [ ] Idiopathic pancreatitis [ ] Other, please specify [ x ] Unable to determine MTDD
--- NOTE | 2022-08-25 09:44 | CDI ---
Documentation Clarification Form Date: 08/25/2022 09:35:00 AM From: Yolanda Drummond Admit Date: 08/21/2022 12:04:00 AM Patient Name: Luis Woodruff Visit Number: [id number] Discharge Date: 08/22/2022 04:40:00 PM ATTENTION: The Clinical Documentation Specialists (CDI) and [facility] Coding Staff appreciate your assistance in clarifying documentation. Please respond to the clarification below the line at the bottom and electronically sign. The CDI & [facility] Coding staff will review the response and follow-up if needed. Please note: Queries are made part of the Legal Health Record. If you have any questions, please contact the author of this message via ITS. Dr. Wendy Pearce The Registered Dietitian assessment on August 22, 2022 indicates this patient has moderate malnutrition. Based on this information and the findings below, is there an additional diagnosis that is clinically appropriate for this patient? History/Risk Factors: under eating, alcohol abuse, alcoholic hepatitis Clinical Indicators: RD Consult Assessment: Under Feeding, moderate malnutrition Current BMI: 20.6 Insufficient energy intake: Eats one meal a day. Replaces KCAL with etoh Weight Loss: 14.2% in 1-2 years Treatment: Increase intake from 50% to 75% Dietary Consult: discharge with regular diet, gain weight Supplements: Ensure Lab monitoring: Albumin Is there an additional diagnosis that is clinically appropriate for this patient? [ ] Mild Protein-Calorie Malnutrition [ x ] Moderate Protein-Calorie Malnutrition [ ] Severe Protein-Calorie Malnutrition [ ] Other condition, please specify [ ] Unable to Determine MTDD
== END 2022-08-22 16:40 | DRG 813 ==
LOC: EC 18:48 → 5NMEDONC 08-21 00:04
PROVIDERS: ADMIT Hospitalist; ATTEND Hospitalist
DX: D69.59 Other secondary thrombocytopenia (principal); E72.20 Disorder of urea cycle metabolism, unspecified; E44.0 Moderate protein-calorie malnutrition; D75.89 Other specified diseases of blood and blood-forming organs; E87.6 Hypokalemia; F10.10 Alcohol abuse, uncomplicated; F17.210 Nicotine dependence, cigarettes, uncomplicated; F20.9 Schizophrenia, unspecified; F41.9 Anxiety disorder, unspecified; I10 Essential (primary) hypertension; K70.10 Alcoholic hepatitis without ascites; Z56.0 Unemployment, unspecified; Z63.5 Disruption of family by separation and divorce; Z79.899 Other long term (current) drug therapy; Z71.3 Dietary counseling and surveillance; Z28.310 Unvaccinated for COVID-19; Z28.21 Immunization not carried out because of patient refusal; Z68.20 Body mass index [BMI] 20.0-20.9, adult
CPT/HCPCS: 36415; 80053; 80074; 80320; 82140; 83605; 83690; 83735; 84100; 85025; 93005; 96361; 96374; 96375; 99284

== ENCOUNTER 2023-01-27 00:07 | Emergency (ER) | payer OTHER ==
[2023-01-27 00:19] VITALS: RESP 16; TEMP 98
--- NOTE | 2023-01-27 00:51 | ED ---
General Adult HPI - General Chief complaint: Shortness of Breath Stated complaint: Lump on chest, Difficulty Breathing Time Seen by Provider: 01/27/23 00:22 Source: patient, RN notes reviewed Mode of arrival: wheelchair Limitations: no limitations - History of Present Illness Initial comments: 37-year-old male presents emergency Department chief complaint of left breast, nipple pain, swelling. Patient states that he's been having increasing swelling and discomfort there for last one year. He states that it's very sensitive to touch states the pain makes it hard to take a deep breath because it rubs against his sister. He states she's never had this evaluated. Patient denies any other associated symptoms denies any recent fevers chills cough like symptoms. - Related Data Previous Rx's Medication Instructions Recorded Folic Acid 1 mg PO DAILY #30 tablet 12/10/22 Magnesium Oxide [Mag-Ox] 400 mg PO DAILY #30 tablet 12/10/22 Potassium Chloride ER [K-Dur 20] 20 meq PO BID #60 tab 12/10/22 Thiamine [Vitamin B-1] 100 mg PO DAILY #30 tab 12/10/22 traZODone HCL [Desyrel] 50 mg PO HS PRN #10 tab 12/10/22 Allergies Allergy/AdvReac Type Severity Reaction Status Date / Time No Known Allergies Allergy Verified 01/27/23 00:15 Review of Systems ROS Statement: Those systems with pertinent positive or pertinent negative responses have been documented in the HPI. ROS Other: All systems not noted in ROS Statement are negative. Past Medical History Past Medical History: Hypertension Additional Past Medical History / Comment(s): etoh abuse History of Any Multi-Drug Resistant Organisms: None Reported Past Surgical History: No Surgical Hx Reported, Back Surgery, Orthopedic Surgery Past Anesthesia/Blood Transfusion Reactions: No Reported Reaction Past Psychological History: Anxiety, Bipolar, Depression, Schizophrenia Smoking Status: Current every day smoker Past Alcohol Use History: Abuse, Daily Past Drug Use History: Cocaine, Heroin, Marijuana, Opiates, Prescription Drug Abuse General Exam Limitations: no limitations General appearance: alert, in no apparent distress Head exam: Present: atraumatic, normocephalic, normal inspection Eye exam: Present: normal appearance, PERRL, EOMI. Absent: scleral icterus, conjunctival injection, periorbital swelling Respiratory exam: Present: normal lung sounds bilaterally, other (Left anterior chest wall, and region there is no notable swelling, palpable mass and tenderness with palpation.). Absent: respiratory distress, wheezes, rales, rhonchi, stridor Cardiovascular Exam: Present: regular rate, normal rhythm, normal heart sounds. Absent: systolic murmur, diastolic murmur, rubs, gallop, clicks Course Vital Signs 01/27/23 00:15 Temperature 98 F Pulse Rate 97 Respiratory 16 Rate Blood Pressure 120/80 O2 Sat by Pulse 100 Oximetry Medical Decision Making - Medical Decision Making Was pt. sent in by a medical professional or institution ([facility] Mao, [employer], urgent care, hospital, or alf...) When possible be specific @ -No Did you speak to anyone other than the patient for history (EMS, parent, family, police, friend...)? What history was obtained from this source @ -No Did you review nursing and triage notes (agree or disagree)? Why? @ -I reviewed and agree with nursing and triage notes Were old charts reviewed (outside hosp., previous admission, EMS record, old EKG, old radiological studies, urgent care reports/EKG's, alf records)? Report findings @ -Old x-rays were reviewed Differential Diagnosis (chest pain, altered mental status, abdominal pain women, abdominal pain men, vaginal bleeding, weakness, fever, dyspnea, syncope, headache, dizziness, GI bleed, back pain, seizure, CVA, palpatations, mental health, musculoskeletal)? @ -Breast mass, breast cancer, gynecomastia, lipoma, this list is not all- inclusive EKG interpreted by me (3pts min.). @ -None X-rays interpreted by me (1pt min.). @ -Chest x-ray shows undetermined age T10 fracture CT interpreted by me (1pt min.). @ -None done U/S interpreted by me (1pt. min.). @ -Ultrasound breast limited shows increased tissue What testing was considered but not performed or refused? (CT, X-rays, U/S, labs)? Why? @ -None What meds were considered but not given or refused? Why? @ -None Did you discuss the management of the patient with other professionals (professionals i.e. CATERINA Mao, [employer], lab, RT, psych nurse, social work msw, docking pilot, teacher, special technical operations officer, pillowcase maker)? Give summary @ -No Was smoking cessation discussed for >3mins.? @ -No Was critical care preformed (if so, how long)? @ -No Were there social determinants of health that impacted care today? How? (Homelessness, low income, unemployed, alcoholism, drug addiction, transportation, low edu. Level, literacy, decrease access to med. care, long-term, rehab)? @ -No Was there de-escalation of care discussed even if they declined (Discuss DNR or withdrawal of care, Hospice)? DNR status @ -No What co-morbidities impacted this encounter? (DM, HTN, Smoking, COPD, CAD, Cancer, CVA, ARF, Chemo, Hep., AIDS, mental health diagnosis, sleep apnea, m orbid obesity)? @ -Drug abuse Was patient admitted / discharged? Hospital course, mention meds given and route, prescriptions, significant lab abnormalities, going to OR and other pertinent info. @ -Discharge patient has increasing breast tissue may be gynecomastia or always concern for breast cancer follow-up with surgeon for further evaluation. Patient has undetermined T10 fracture no acute symptoms. Undiagnosed new problem with uncertain prognosis? @ -No Drug Therapy requiring intensive monitoring for toxicity (Heparin, Nitro, Insulin, Cardizem)? @ -No Were any procedures done? @ -No Diagnosis/symptom? @ -Gynecomastia Acute, or Chronic, or Acute on Chronic? @ -Acute Uncomplicated (without systemic symptoms) or Complicated (systemic symptoms)? @ -Uncomplicated Side effects of treatment? @ -No Exacerbation, Progression, or Severe Exacerbation? @ -No Poses a threat to life or bodily function? How? (Chest pain, [place], [place], pneumonia, PE, COPD, DKA, ARF, appy, cholecystitis, CVA, Diverticulitis, Homicidal, S uicidal, threat to staff... and all critical care pts) @ -No Disposition Clinical Impression: Breast mass in male, Gynecomastia Disposition: HOME SELF-CARE Condition: Stable Instructions (If sedation given, give patient instructions): Breast Mass (ED) Additional Instructions: Please return to the Emergency Department if symptoms worsen or any other concerns. Is patient prescribed a controlled substance at d/c from ED?: No Referrals: None,Stated [Primary Care Provider] - 1-2 days Blake Hahn MD [STAFF PHYSICIAN] - 1-2 days Josefina Lazo MD [STAFF PHYSICIAN] - 1-2 days Time of Disposition: 01:33
--- NOTE | 2023-01-27 01:03 | XR ---
EXAMINATION TYPE: XR chest 2V DATE OF EXAM: 01/27/2023 COMPARISON: 03/22/2022 HISTORY: Short of breath TECHNIQUE: FINDINGS: Heart is normal. Lungs are clear. Diaphragm is normal. There is 25% anterior wedging of T10 vertebra of uncertain age. Per IMPRESSION: No cardiopulmonary disease. T10 compression fracture. Fra cture of uncertain age.
[2023-01-27 01:44] VITALS: BP 124/78; PULSE 92
--- NOTE | 2023-01-27 10:08 | USB ---
Reason for Exam: Clinical finding. Findings: Behind the left nipple appears more heterogeneous compared to the right. ASSESSMENT: Ultrasound shows increased breast tissue behind the left nipple compared to the right. No discrete mass identified. Category benign finding. Overall Assessment: Benign, BI-RAD 2 Electronically signed and approved by: Shahriar Baker M.D.
== END 2023-01-27 01:40 | disposition home or self-care (01) ==
LOC: EC 00:07
DX: N62 Hypertrophy of breast (principal); N63.0 Unspecified lump in unspecified breast; I10 Essential (primary) hypertension; F17.200 Nicotine dependence, unspecified, uncomplicated; F12.90 Cannabis use, unspecified, uncomplicated; F11.90 Opioid use, unspecified, uncomplicated; F14.90 Cocaine use, unspecified, uncomplicated; F15.90 Other stimulant use, unspecified, uncomplicated
CPT/HCPCS: 71046; 99285

== ENCOUNTER 2023-02-28 19:39 | Inpatient (IN) | payer OTHER ==
[2023-02-28] MEDS ORDERED: SODIUM CHLORIDE 0.9% 1,000 ML IV STA (19:56)
[2023-02-28] MEDS ORDERED: LORazepam 2 MG/ML INJ IV STA (19:56)
--- NOTE | 2023-02-28 20:17 | ED ---
General Adult HPI - General Chief complaint: Seizure Stated complaint: nevaeh blanco Time Seen by Provider: 02/28/23 19:43 Source: patient, EMS, RN notes reviewed, old records reviewed Mode of arrival: EMS - History of Present Illness Initial comments: 37-year-old male presents with alcohol intoxication and reported seizure. Patient has previous history of alcohol withdrawal seizures. He states that he and attempt to abstain from alcohol for 2 days starting 3 days ago and developed symptoms of vomiting. He states that he did drink today. Patient is uncertain of the exact details of seizure but paramedics did report witnessed seizure. - Related Data Home Medications Medication Instructions Recorded Confirmed No Known Home Medications 02/28/23 02/28/23 Allergies Allergy/AdvReac Type Severity Reaction Status Date / Time No Known Allergies Allergy Verified 02/28/23 20:56 Review of Systems ROS Statement: Those systems with pertinent positive or pertinent negative responses have been documented in the HPI. ROS Other: All systems not noted in ROS Statement are negative. Past Medical History Past Medical History: Hypertension Additional Past Medical History / Comment(s): etoh abuse History of Any Multi-Drug Resistant Organisms: None Reported Past Surgical History: No Surgical Hx Reported, Back Surgery, Orthopedic Surgery Past Anesthesia/Blood Transfusion Reactions: No Reported Reaction Past Psychological History: Anxiety, Bipolar, Depression, Schizophrenia Smoking Status: Current every day smoker Past Alcohol Use History: Abuse, Daily Past Drug Use History: Cocaine, Heroin, Marijuana, Opiates, Prescription Drug Abuse General Exam General appearance: alert, appears intoxicated Head exam: Present: atraumatic, normocephalic Eye exam: Present: normal appearance, PERRL ENT exam: Present: normal exam Neck exam: Present: normal inspection. Absent: tenderness, meningismus Respiratory exam: Present: normal lung sounds bilaterally. Absent: respiratory distress, wheezes Cardiovascular Exam: Present: regular rate, normal rhythm GI/Abdominal exam: Present: soft. Absent: distended, tenderness, guarding Extremities exam: Present: normal inspection, normal capillary refill. Absent: pedal edema Neurological exam: Present: alert, oriented X3, CN II-XII intact. Absent: motor sensory deficit Psychiatric exam: Present: anxious Skin exam: Present: warm, dry, intact. Absent: cyanosis, diaphoretic Course Vital Signs 02/28/23 19:41 Temperature 97.9 F Pulse Rate 88 Respiratory 16 Rate Blood Pressure 107/90 O2 Sat by Pulse 98 Oximetry EKG Findings - EKG Comments: EKG Findings:: Sinus tachycardia rate of 110, incomplete right bundle-branch block, ID interval 138, QRS duration 114, QTC 447, no ST segment elevation Medical Decision Making - Medical Decision Making Was pt. sent in by a medical professional or institution ([facility], [facility], urgent care, hospital, or assisted...) When possible be specific @ -No Did you speak to anyone other than the patient for history (EMS, parent, family, police, friend...)? What history was obtained from this source @ -No Did you review nursing and triage notes (agree or disagree)? Why? @ -I reviewed and agree with nursing and triage notes Were old charts reviewed (outside hosp., previous admission, EMS record, old EKG, old radiological studies, urgent care reports/EKG's, assisted records)? Report findings @ -No old charts were reviewed Differential Diagnosis (chest pain, altered mental status, abdominal pain women, abdominal pain men, vaginal bleeding, weakness, fever, dyspnea, syncope, headache, dizziness, GI bleed, back pain, seizure, CVA, palpatations, mental health, musculoskeletal)? @ -[Alcohol intoxication, withdrawal seizure EKG interpreted by me (3pts min.). @ -As above X-rays interpreted by me (1pt min.). @ -None done CT interpreted by me (1pt min.). @ -None done U/S interpreted by me (1pt. min.). @ -None done What testing was considered but not performed or refused? (CT, X-rays, U/S, labs)? Why? @ -None What meds were considered but not given or refused? Why? @ -None Did you discuss the management of the patient with other professionals (professionals i.e. [facility], [facility], lab, RT, psych nurse, social staff worker, university professor, teacher, financial aid officer, sample case porter)? Give summary @ -No Was smoking cessation discussed for >3mins.? @ -No Was critical care preformed (if so, how long)? @ -No Were there social determinants of health that impacted care today? How? (Homelessness, low income, unemployed, alcoholism, drug addiction, transportation, low edu. Level, literacy, decrease access to med. care, fpc, rehab)? @ -No Was there de-escalation of care discussed even if they declined (Discuss DNR or withdrawal of care, Hospice)? DNR status @ -No What co-morbidities impacted this encounter? (DM, HTN, Smoking, COPD, CAD, Cancer, CVA, ARF, Chemo, Hep., AIDS, mental health diagnosis, sleep apnea, morbid obesity)? @ -[Alcohol Was patient admitted / discharged? Hospital course, mention meds given and route, prescriptions, significant lab abnormalities, going to OR and other pertinent info. @ -[37-year-old male with withdrawal seizure, patient is intoxicated. Alcohol level CCCL. He has a magnesium 2.7 which is replaced. He will be monitored with seizure precautions. Ativan will be given for withdrawal symptoms and seizure. Undiagnosed new problem with uncertain prognosis? @ -No Drug Therapy requiring intensive monitoring for toxicity (Heparin, Nitro, Insu , Cardizem)? @ -No Were any procedures done? @ -No Diagnosis/symptom? @ -[Alcohol intoxication, withdrawal seizure, hypokalemia Acute, or Chronic, or Acute on Chronic? @ -[acute Uncomplicated (without systemic symptoms) or Complicated (systemic symptoms)? @ -[complicated Side effects of treatment? @ -No Exacerbation, Progression, or Severe Exacerbation? @ -No Poses a threat to life or bodily function? How? (Chest pain, USA, NV, pneumonia, PE, COPD, DKA, ARF, appy, cholecystitis, CVA, Diverticulitis, Homicidal, Suicidal, threat to staff... and all critical care pts) @ -[yes, alcohol withdrawal, seizure, - Lab Data Result diagrams: 02/28/23 20:30 02/28/23 20:30 Lab Results 02/28/23 02/28/23 Range/Units 20:30 20:30 WBC 7.8 (3.8-10.6) k/uL RBC 3.97 L (4.30-5.90) m/uL Hgb 14.2 (13.0-17.5) gm/dL Hct 40.7 (39.0-53.0) % MCV 102.3 H (80.0-100.0) fL MCH 35.8 H (25.0-35.0) pg MCHC 35.0 (31.0-37.0) g/dL RDW 14.2 (11.5-15.5) % Plt Count 37 L (150-450) k/uL MPV 11.3 Neutrophils % 64 % Lymphocytes % 28 % Monocytes % 6 % Eosinophils % 0 % Basophils % 0 % Neutrophils # 5.0 (1.3-7.7) k/uL Lymphocytes # 2.2 (1.0-4.8) k/uL Monocytes # 0.4 (0-1.0) k/uL Eosinophils # 0.0 (0-0.7) k/uL Basophils # 0.0 (0-0.2) k/uL Manual Slide Review Performed Large Platelets Present Macrocytosis Slight Sodium 141 (137-145) mmol/L Potassium 2.7 L* (3.5-5.1) mmol/L Chloride 98 (98-107) mmol/L Carbon Dioxide 23 (22-30) mmol/L Anion Gap 20 mmol/L BUN 17 (9-20) mg/dL Creatinine 1.02 (0.66-1.25) mg/dL Est GFR (CKD-EPI)AfAm >90 (>60 ml/min/1.73 sqM) Est GFR (CKD-EPI)NonAf >90 (>60 ml/min/1.73 sqM) Glucose 95 (74-99) mg/dL Calcium 9.4 (8.4-10.2) mg/dL Magnesium 2.1 (1.6-2.3) mg/dL Total Bilirubin 3.5 H (0.2-1.3) mg/dL AST 374 H (17-59) U/L ALT 95 H (4-49) U/L Alkaline Phosphatase 226 H (38-126) U/L Total Protein 9.3 H (6.3-8.2) g/dL Albumin 5.1 H (3.5-5.0) g/dL Serum Alcohol 340 H* mg/dL Disposition Clinical Impression: Hypokalemia, Alcohol intoxication Disposition: ADMITTED IP TO THIS HOSP Condition: Stable Is patient prescribed a controlled substance at d/c from ED?: No Referrals: None,Stated [REFERRING] - 1-2 days Time of Disposition: 21:41
[2023-02-28 21:02] LABS: ALT 95 U/L (4-49); African American GFR (CKD) >90 (>60 ml/min/1.73 sqM); Albumin 5.1 g/dL (3.5-5.0); Anion Gap 20 mmol/L; Blood Urea Nitrogen 17 mg/dL (9-20); Calcium 9.4 mg/dL (8.4-10.2); Carbon Dioxide 23 mmol/L (22-30); Chloride 98 mmol/L (98-107); Glucose 95 mg/dL (74-99); Non-African American GFR(CKD) >90 (>60 ml/min/1.73 sqM); Sodium 141 mmol/L (137-145); Total Bilirubin 3.5 mg/dL (0.2-1.3); Total Protein 9.3 g/dL (6.3-8.2)
[2023-02-28 21:21] LABS: Basophils % (A) 0 %; Eosinophils % (A) 0 %; HCT 40.7 % (39.0-53.0); HGB 14.2 gm/dL (13.0-17.5); Lymphocytes # (A) 2.2 k/uL (1.0-4.8); Lymphocytes % (A) 28 %; MCH 35.8 pg (25.0-35.0); MCV 102.3 fL (80.0-100.0); Macrocytosis Slight; Mean Platelet Volume 11.3; Monocytes # (A) 0.4 k/uL (0-1.0); Monocytes % (A) 6 %; Neutrophils % (A) 64 %; RBC 3.97 m/uL (4.30-5.90); RDW 14.2 % (11.5-15.5); WBC 7.8 k/uL (3.8-10.6)
[2023-02-28 21:25] LABS: AST 374 U/L (17-59); Alcohol 340 mg/dL; Alkaline Phosphatase 226 U/L (38-126); Magnesium 2.1 mg/dL (1.6-2.3); Potassium 2.7 mmol/L (3.5-5.1)
[2023-02-28 21:31] LABS: Large Platelets Present; Platelet Count 37 k/uL (150-450)
[2023-02-28] MEDS ORDERED: NALOXONE 0.4 MG/ML 1 ML VIAL IV PRN (21:33)
[2023-02-28] MEDS ORDERED: LORazepam 2 MG/ML INJ IV PRN ×3 (21:33)
[2023-02-28] MEDS ORDERED: THIAMINE 100 MG/ML 2 ML VIAL IM STA (21:33)
[2023-02-28] MEDS ORDERED: POTASSIUM CHLORIDE ER 20 MEQ TAB.ER PO STA (21:35)
[2023-02-28] MEDS: POTASSIUM CHLORIDE 10 MEQ in WATER FOR INJECTION 1 100ML.BAG IVPB SCH ×2 (22:21→23:35)
[2023-02-28] MEDS: SODIUM CHLORIDE 0.9% 1,000 ML IV SCH (22:22)
[2023-02-28] MEDS ORDERED: ACETAMINOPHEN TAB 325 MG TAB PO PRN (23:03)
[2023-02-28] MEDS ORDERED: ONDANSETRON 4 MG/2 ML VIAL IVP PRN (23:03)
[2023-02-28] MEDS: NICOTINE 21MG/24HR PATCH TRANSDERM SCH (23:34)
[2023-02-28] MEDS: traZODone HCL 50 MG TAB PO PRN (23:34)
[2023-03-01] MEDS: POTASSIUM CHLORIDE 10 MEQ in WATER FOR INJECTION 1 100ML.BAG IVPB SCH ×2 (00:44→01:43)
[2023-03-01] MEDS: NICOTINE 21MG/24HR PATCH TRANSDERM SCH (08:17)
[2023-03-01] MEDS: PANTOPRAZOLE 40 MG/10 ML VIAL IVP SCH (08:17)
[2023-03-01] MEDS: MULTIVITAMINS, THERA 1 EACH TAB PO SCH (08:18)
[2023-03-01] MEDS: FOLIC ACID 1 MG TAB PO SCH (08:18)
[2023-03-01 08:44] LABS: ALT 93 U/L (4-49); AST 317 U/L (17-59); African American GFR (CKD) >90 (>60 ml/min/1.73 sqM); Albumin 4.1 g/dL (3.5-5.0); Alkaline Phosphatase 157 U/L (38-126); Anion Gap 12 mmol/L; Blood Urea Nitrogen 14 mg/dL (9-20); Calcium 8.2 mg/dL (8.4-10.2); Carbon Dioxide 23 mmol/L (22-30); Chloride 102 mmol/L (98-107); Glucose 106 mg/dL (74-99); Non-African American GFR(CKD) >90 (>60 ml/min/1.73 sqM); Sodium 137 mmol/L (137-145); Total Bilirubin 3.3 mg/dL (0.2-1.3); Total Protein 7.3 g/dL (6.3-8.2)
[2023-03-01 08:57] LABS: Potassium 2.5 mmol/L (3.5-5.1)
[2023-03-01] MEDS ORDERED: THIAMINE 100 MG TAB PO SCH (09:00)
[2023-03-01] MEDS ORDERED: POTASSIUM CHLORIDE ER 20 MEQ TAB.ER PO STA (09:00)
[2023-03-01] MEDS ORDERED: Magnesium Replacement Protocol 1 EACH MISC MISCELLANE PRN (09:56)
[2023-03-01] MEDS ORDERED: POTASSIUM CHLORIDE 20 MEQ in WATER FOR INJECTION 1 100ML.BAG IVPB ONE ×2 (10:00→13:00)
[2023-03-01] MEDS ORDERED: MAGNESIUM SULFATE-D5W PMX 1 GM in DEXTROSE/WATER 1 100ML.BAG IVPB ONE (11:00)
[2023-03-01] MEDS ORDERED: predniSONE 20 MG TAB PO SCH (11:00)
--- NOTE | 2023-03-01 11:00 | P.HPIM ---
History of Present Illness This is a pleasant 37 years old male with past medical history of alcohol abuse, alcohol withdrawal and alcohol withdrawal seizure pt has been drinking alcohol for about more than 20 years as he explains , last time he was sober was about last December, since then he resumed drinking, drinks about 1 pint of liquor every day, until 2 days ago when he started having vomiting for anything even sip of water , he was vomiting all day long with no blood, no abdominal pain except when throwing up, no bowel movement which is expected Yesterday he started drinking again went he developed more severe vomiting. But WHAT struck him to come to emergency room is that he developed clonic tonic generalized seizure. Associated with oral, if so are felt snowballs lying in the front of his eyes a few minutes before the seizure, he denies tongue biting or urine or bowel incontinence. But he thinks it lasted more than 40 minutes (his father called him and told him this) which is longer than usual, usually he states it lasts 4-5 minutes. He states that he had 4-5 alcohol withdrawal seizures before similar to this one but there were shorter, also he has aura of snowballs vision prior to the seizure He has mild frontal headache, no neck stiffness, he denies sinusitis symptoms but he has some cough with chronic phlegm from his smoking, he had some mild sore throat probably from vomiting. This resolved now. He denies urinary symptoms, no dizziness, no extremity weakness or numbness. He has chronic tingling in his feet for more than a year. No blurred vision or slurred speech. Patient conference signs and symptoms of depression but he denies suicidal or homicidal ideation, he denies hallucination or delusions. He does not think he needs to see psychiatrist Patient is hemodynamically stable, afebrile No signs of SIRS, no leukocytosis. Hemoglobin 14.2. Platelet count 37 Creatinine and sodium are normal. Potassium is 2.7 and 2.5. Magnesium 2.1 and 1.7. Total bilirubin is elevated to 3.5 and 3.3, AST 374 and 317, ALT 93. (Ratio of AST> ALT is more than 1.5:1) of vomiting 4.1 Review of Systems Review of systems CONSTITUTIONAL: No fever, no malaise, no fatigue. HEENT: No recent visual problems or hearing problems. Denied any sore throat. CARDIOVASCULAR: No orthopnea, PND, no palpitations, no syncope. PULMONARY: No shortness of breath, no cough, no hemoptysis. GASTROINTESTINAL: No diarrhea,. Normoactive bowel sounds. NEUROLOGICAL: No headaches, no weakness, no numbness. HEMATOLOGICAL: Denies any bleeding or petechiae. GENITOURINARY: Denies any burning micturition, frequency, or urgency. MUSCULOSKELETAL/RHEUMATOLOGICAL: Denies any joint pain, swelling, or any muscle pain. ENDOCRINE: Denies any polyuria or polydipsia. Past Medical History Past Medical History: Hypertension Additional Past Medical History / Comment(s): etoh abuse History of Any Multi-Drug Resistant Organisms: None Reported Past Surgical History: Back Surgery Past Anesthesia/Blood Transfusion Reactions: No Reported Reaction Past Psychological History: Anxiety, Bipolar, Depression, Schizophrenia Smoking Status: Current every day smoker Past Alcohol Use History: Abuse, Daily Additional Past Alcohol Use History / Comment(s): Pt states he smokes 1 1/2 packs a day and started smoking in 1995. Pt states he drinks about half a gallon of alcohol daily. Occasional use of marijuana Past Drug Use History: Cocaine, Heroin, Marijuana, Opiates, Prescription Drug Abuse Medications and Allergies Home Medications Medication Instructions Recorded Confirmed Type ALPRAZolam [Xanax] 0.25 mg PO BID PRN 02/28/23 02/28/23 History Allergies Allergy/AdvReac Type Severity Reaction Status Date / Time No Known Allergies Allergy Verified 02/28/23 20:56 Physical Exam Vitals: Vital Signs Temp Pulse Pulse Resp BP BP Pulse Ox 03/01/23 04:00 98.1 F 78 17 144/73 100 03/01/23 00:00 97.9 F 88 18 145/75 98 02/28/23 22:20 83 18 119/59 100 02/28/23 19:41 97.9 F 88 16 107/90 98 Intake and Output 02/28/23 02/28/23 03/01/23 14:59 22:59 06:59 Intake Total 240 Balance 240 Intake: Oral 240 Other: Weight 63.503 kg GENERAL: The patient is alert and oriented x3, not in any acute distress. Well developed, well nourished. HEENT: Pupils are round and equally reacting to light. EOMI. No scleral icterus. No conjunctival pallor. Normocephalic, atraumatic. No pharyngeal erythema. No thyromegaly. CARDIOVASCULAR: S1 and S2 present. No murmurs, rubs, or gallops. PULMONARY: Chest is clear to auscultation, no wheezing or crackles. -ABDOMEN: Soft, epigastric and right upper quadrant tenderness, nondistended, normoactive bowel sounds. No palpable organomegaly. MUSCULOSKELETAL: No joint swelling or deformity. EXTREMITIES: No cyanosis, clubbing, or pedal edema. NEUROLOGICAL: Gross neurological examination did not reveal any focal deficits. SKIN: No rashes. no petechiae. Results CBC & Chem 7: 02/28/23 20:30 03/01/23 06:49 Labs: Abnormal Lab Results - Last 24 Hours (Table) 02/28/23 02/28/23 Range/Units 20:30 20:30 RBC 3.97 L (4.30-5.90) m/uL MCV 102.3 H (80.0-100.0) fL MCH 35.8 H (25.0-35.0) pg Plt Count 37 L (150-450) k/uL Potassium 2.7 L* (3.5-5.1) mmol/L Total Bilirubin 3.5 H (0.2-1.3) mg/dL AST 374 H (17-59) U/L ALT 95 H (4-49) U/L Alkaline Phosphatase 226 H (38-126) U/L Total Protein 9.3 H (6.3-8.2) g/dL Albumin 5.1 H (3.5-5.0) g/dL Serum Alcohol 340 H* mg/dL Thrombosis Risk Factor Assmnt - Choose All That Apply Any of the Below Risk Factors Present?: No Other Risk Factors: No Other congenital or acquired thrombophilia - If yes, enter type in comment: No Thrombosis Risk Factor Assessment Level: Very Low Risk Assessment and Plan Assessment: Alcoholic hepatitis with elevated AST more than ALT and elevated bilirubin more than 3, and epigastric tenderness Alcohol intoxication, at-risk of alcohol withdrawal delirium tremens Most likely patient had Alcohol withdrawal seizure, because patient reports a longer duration of seizure we are going to consult Neurologist to rule out Recurrent vomiting most likely alcoholic gastritis and alcoholic hepatitis Severe hypokalemia Chronic tingling in her feet most likely peripheral neuropathy related to his alcohol use. Hypokalemia and mild hypomagnesemia secondary to alcoholic affect Severe thrombocytopenia was likely secondary to alcohol effect Plan: Continue with CIWA protocol thiamine 100 mg twice a day Neurology consult Ativan when necessary Continue with multivitamins and folic acid Check INR Start prednisone 40 mg Check ultrasound of the liver There is no GI coverage in this facility during this weekend, therefore talked t o the [facility] Labs and medication were reviewed.. Continue same treatment. Continue with symptomatic treatment. Resume home medication. Monitor labs and vitals. DVT and GI prophylaxis. Further recommendations as per clinical course of the patient DVT prophylaxis: no Subcutaneous heparin for severe thrombocytopenia (total check INR first) GI Prophylaxis: Ppi Prognosis is guarded
[2023-03-01 12:19] LABS: INR 1.1 (<1.2); Prothrombin Time 11.4 sec (9.0-12.0)
[2023-03-01] MEDS: SODIUM CHLORIDE 0.9% 1,000 ML IV SCH (12:27)
[2023-03-01] MEDS ORDERED: Potassium Replacement Protocol 1 EACH MISC MISCELLANE PRN (16:24)
--- NOTE | 2023-03-01 17:58 | P.CNNES ---
History of Present Illness Consult date: 03/01/23 Requesting physician: Yony Esparza Reason for Consult: Seizure History of Present Illness: This is a telemedicine neurology consultation performed today on 03/02/2023. Patient is a 37-year-old male with history of seizures in the past, came to the hospital for seizures. Patient says that he has history of seizures for the last 2 years. He has about 4-5 seizures in his lifetime. Patient states the first seizure was not alcohol-related, but the other 3 seizures were alcohol- related. Patient states that the first seizure was a brief one, when he was standing, talking and he passed out, fell over and was shaking. His other seizures occurs when he is getting detox. His last seizure was in December 2022. Patient states that he has never gone to the hospital for his seizures, never tried any medication for it. Patient states that yesterday he had a seizure, which was the most prolonged, lasted for about 35-40 minutes. He was brought to the hospital. Patient denies any tongue bite or loss of control of urine. As per EMS flow sheet, it was reported patient had 3 consecutive seizures lasting a few minutes each. Family states patient has had seizures in the past but has never been diagnosed with seizure disorder. Patient's family mentioned that patient is alcoholic and drinks every day. His last drink was around 5 PM in the evening. Patient states that he just got out of the rehab approximately 1 month ago, but relapsed shortly after. Patient currently complaining of a headache. Patient denies any other complaints. No difficulty breathing, chest pain, shortness of breath, blurred vision, tinnitus, [place], neck pain, back pain. On examination patient was initially confused with incoherent speech. Patient had a strong alcohol odor noted. His blood pressure at the scene was 151/98, pulse rate 89 respiration 18 saturation 98%. Repeat blood pressure 140/90. Blood pressure on arrival was 107/90. Patient's blood test shows normal WBC, hemoglobin 14.2 with elevated MCV 102.3. Platelets are 37. PT/PTT normal. Sodium is normal potassium 2.7. Hepatic panel with AST 374, ALT 95. Renal functions normal. Blood alcohol level was 340. Patient has history of admission for intoxication on 12/08/2022 when his blood alcohol level was 199. EKG shows sinus tachycardia. Patient has smoked 1-1/2 pack per day for 20 years. He smokes marijuana once in a great while. Patient states that he drinks a pint of whiskey every day since age 16. Patient states that he has history of concussion as a kid. He had 2 incidents when he rolled off top of the bunk bed and fell on his face. He broke lower jaw 3 times whereas the upper jaw one time. These 2 falls happened two consecutive years when he was age 5-6. He was hospitalized. Review of Systems Constitutional: Denies chills, Denies fever Eyes: denies blurred vision, denies pain Ears: deny: decreased hearing, ear discharge Ears, nose, mouth and throat: Denies headache, Denies sore throat Cardiovascular: Denies chest pain, Denies shortness of breath Respiratory: Denies cough, Denies excessive sputum Gastrointestinal: Denies abdominal pain, Denies diarrhea, Denies nausea, Denies vomiting Musculoskeletal: Denies frequent falls, Denies myalgias Integumentary: Denies pruritus, Denies rash Neurological: Reports as per HPI Endocrine: Denies fatigue, Denies weight change Past Medical History Past Medical History: Hypertension Additional Past Medical History / Comment(s): etoh abuse History of Any Multi-Drug Resistant Organisms: None Reported Past Surgical History: Back Surgery Past Anesthesia/Blood Transfusion Reactions: No Reported Reaction Past Psychological History: Anxiety, Bipolar, Depression, Schizophrenia Smoking Status: Current every day smoker Past Alcohol Use History: Abuse, Daily Additional Past Alcohol Use History / Comment(s): Pt states he smokes 1 1/2 packs a day and started smoking in 1995. Pt states he drinks about half a gallon of alcohol daily. Occasional use of marijuana Past Drug Use History: Cocaine, Heroin, Marijuana, Opiates, Prescription Drug Abuse Medications and Allergies Home Medications Medication Instructions Recorded Confirmed Type ALPRAZolam [Xanax] 0.25 mg PO BID PRN 02/28/23 02/28/23 History Allergies Allergy/AdvReac Type Severity Reaction Status Date / Time No Known Allergies Allergy Verified 02/28/23 20:56 Physical Examination - Vital Signs Vital Signs: Vital Signs Temp Pulse Pulse Resp BP BP Pulse Ox 03/01/23 11:22 89 18 115/78 97 03/01/23 08:00 98.5 F 99 18 133/82 97 03/01/23 07:53 98 03/01/23 04:00 98.1 F 78 17 144/73 100 03/01/23 00:00 97.9 F 88 18 145/75 98 02/28/23 22:20 83 18 119/59 100 02/28/23 19:41 97.9 F 88 16 107/90 98 Intake and Output 02/28/23 03/01/23 03/01/23 22:59 06:59 14:59 Intake Total 240 240 Balance 240 240 Intake: Oral 240 240 Other: Weight 63.503 kg Patient is a young male, in no acute distress. Patient is alert awake oriented to time place and person. Patient knows it is February 2023 and that he is in [facility]. Speech and language functions are normal. Patient can name and repeat very well. No aphasia or dysarthria. Attention, concentration and fund of knowledge is adequate. On cranial nerve examination, pupils are equal, round and reacting to light, visual fierro are full on confrontation, with no neglect on double simultaneous stimulation. Extraocular muscles are intact with no nystagmus. Face is symmetric, tongue protrudes to the midline. Palatal elevation and sensation normal, hearing and shoulder shrug normal, facial sensation normal. Patient has very poor dentition. There is no evidence of oral trauma. On muscle strength testing, there is no pronator drift and the strength is normal in arms and legs distally and proximally. Deep tendon reflexes are symmetric 2 in the upper limbs, 2+ in the lower limbs and plantars downgoing. Sensory to touch is equal with no neglect on double simultaneous stimulation. Cerebellar function showed no ataxia for [id number] testing. No dysdiadochokinesia. There is mild ataxia for [id number]-co-[id number] testing bilaterally. Tone and bulk of muscles normal. Gait deferred.. On general examination, there is no carotid bruit or murmur, S1-S2 audible. Chest is clear on consultation. Abdomen is soft nontender. No organomegaly, bowel sounds present. Peripheral pulses are present. No edema. Results - Laboratory Findings CBC and BMP: 02/28/23 20:30 03/01/23 06:49 Abnormal Lab Findings: Abnormal Labs 02/28/23 02/28/23 03/01/23 20:30 20:30 06:49 RBC 3.97 L MCV 102.3 H MCH 35.8 H Plt Count 37 L Potassium 2.7 L* 2.5 L* Glucose 106 H Calcium 8.2 L Total Bilirubin 3.5 H 3.3 H AST 374 H 317 H ALT 95 H 93 H Alkaline Phosphatase 226 H 157 H Total Protein 9.3 H Albumin 5.1 H Serum Alcohol 340 H* Assessment and Plan Assessment: * Seizure disorder, probably due to alcohol withdrawal. Patient has presented with recurrent seizures. Patient has history of 3-4 seizures in the past, rule out seizure disorder. * Alcoholism, came with alcohol intoxication * Hypokinemia * Elevated liver enzymes, likely due to alcoholism * History of fall with jaw fracture at age 5-6. * Macrocytosis Plan: * Patient will undergo MRI of the brain with and without contrast to rule out secondary causes of seizure. * EEG to evaluate for epileptiform activity * We will hold off on antiepileptic medication, until above tests are completed. * Treatment of hypokalemia as per internal medicine. * Watch for delirium tremens. Continue folate, thiamine and multivitamin. * Patient informed of [place] state law of no driving unless seizure free for 6 months, climbing ladders, operate dangerous machinery or unsupervised swimming. * Dr. Danny Do will resume neurology service the morning. Thank you for the consult.
[2023-03-01 18:49] LABS: ALT 83 U/L (4-49); AST 270 U/L (17-59); African American GFR (CKD) >90 (>60 ml/min/1.73 sqM); Albumin 4.2 g/dL (3.5-5.0); Alkaline Phosphatase 170 U/L (38-126); Anion Gap 7 mmol/L; Blood Urea Nitrogen 13 mg/dL (9-20); Calcium 8.6 mg/dL (8.4-10.2); Carbon Dioxide 26 mmol/L (22-30); Chloride 102 mmol/L (98-107); Glucose 151 mg/dL (74-99); Non-African American GFR(CKD) >90 (>60 ml/min/1.73 sqM); Potassium 2.9 mmol/L (3.5-5.1); Sodium 135 mmol/L (137-145); Total Protein 7.6 g/dL (6.3-8.2)
[2023-03-01] MEDS: THIAMINE 100 MG TAB PO SCH (20:31)
[2023-03-01] MEDS: POTASSIUM CHLORIDE ER 20 MEQ TAB.ER PO SCH ×3 (20:31→23:32)
[2023-03-01] MEDS: traZODone HCL 50 MG TAB PO PRN (23:32)
[2023-03-02] MEDS: SODIUM CHLORIDE 0.9% 1,000 ML IV SCH ×2 (01:45→11:29)
[2023-03-02 08:20] LABS: African American GFR (CKD) >90 (>60 ml/min/1.73 sqM); Anion Gap 8 mmol/L; Blood Urea Nitrogen 12 mg/dL (9-20); Calcium 8.8 mg/dL (8.4-10.2); Carbon Dioxide 24 mmol/L (22-30); Chloride 106 mmol/L (98-107); Glucose 90 mg/dL (74-99); Non-African American GFR(CKD) >90 (>60 ml/min/1.73 sqM); Sodium 138 mmol/L (137-145)
[2023-03-02 08:25] LABS: Potassium 3.6 mmol/L (3.5-5.1)
[2023-03-02] MEDS: MULTIVITAMINS, THERA 1 EACH TAB PO SCH (09:12)
[2023-03-02] MEDS: THIAMINE 100 MG TAB PO SCH ×2 (09:12→20:18)
[2023-03-02] MEDS: FOLIC ACID 1 MG TAB PO SCH (09:12)
[2023-03-02] MEDS: NICOTINE 21MG/24HR PATCH TRANSDERM SCH (09:12)
[2023-03-02] MEDS ORDERED: LORazepam 2 MG/ML INJ IV ONE (09:30)
[2023-03-02] MEDS: PANTOPRAZOLE 40 MG/10 ML VIAL IVP SCH (09:45)
--- NOTE | 2023-03-02 11:30 | MR ---
EXAMINATION TYPE: MR brain wo/w con DATE OF EXAM: 03/02/2023 COMPARISON: NONE HISTORY: Seizure disorder. TECHNIQUE: Multiplanar, multisequence images of the brain and brainstem is performed without and with IV contras t, utilizing 6.5 mL intravenous Gadavist . FINDINGS: Diffusion weighted images demonstrate no evidence of a recent infarct or other diffusion ab normality. The ventricular system and cisternal spaces are normal in size and appearance. The brain volume is age appropriate. T2 Star weighted images show no suspicious intraparenchymal blood products . T2 coronal weighted images show hippocampal gyri to appear symmetric and felt within normal limits. Single nonspecific approximately 5 to 6 mm focus of T2 hyperintensity in the central maureen axial imag e 10. There are a few additional tiny foci of T2 hyperintensity in the bilateral frontal lobes. Less than 5 lesions measuring under 3 mm in size are noted. Midline structures demonstrate normal morphology. The craniocervical junction appears within normal limits. Post contrast images demonstrate no abnormal enhancement. The dural venous sinuses appear pa tent. The visualized sinuses are clear and the globes are intact. IMPRESSION: Minimal nonspecific white matter changes. No abnormal enhancement or enhancing masses are noted. Definitive seizure focus not clearly seen.
--- NOTE | 2023-03-02 14:12 | P.PN ---
Subjective Progress Note Date: 03/02/23 I am seeing the patient for the first time during this admission. Please refer to Dr. Stewart's note for further details. It appears no further seizures according to patient and his nurse. Patient is feel better compared to initial presentation. Denies of any headache, focal weakness,visual disturbance. Objective - Vital Signs Vital signs: Vital Signs Temp 98.1 F 03/02/23 12:00 Pulse 68 03/02/23 12:00 Resp 16 03/02/23 12:00 BP 135/77 03/02/23 12:00 Pulse Ox 99 03/02/23 12:00 FiO2 Intake & Output 03/01/23 03/02/23 03/02/23 18:59 06:59 18:59 Intake Total 480 250 Balance 480 250 Intake: IV 20 Invasive Line 1 20 Oral 480 230 Other: Voiding Method Toilet Toilet # Voids 4 2 2 - Exam GENERAL: The patient is lying in bed and is not in acute distress. NEUROLOGICAL: Higher mental function: The patient is awake, alert, oriented to self, place and time. Patient is following commands. No aphasia and no neglect. Cranial nerves: The pupils are round, equal and reactive to light and accommodation. Visual fierro are full to confrontation throughout. Extraocular movement is rotatory nystagmus looking in all directions. Facial sensation is normal to touch throughout. The facial strength is normal throughout. Hearing is normal bilaterally to hand rub. Tongue is midline and moved [id number] without any difficulty. No dysarthria is noted. Shoulder shrug is normal bilaterally. Motor: The strength is 5 over 5 throughout. Normal tone and bulk. Cerebellum: Normal finger to nose bilaterally. Sensation: Sensation is normal to touch throughout. . - Labs CBC & Chem 7: 02/28/23 20:30 03/02/23 06:52 Labs: Abnormal Lab Results - Last 24 Hours (Table) 03/01/23 Range/Units 18:01 Sodium 135 L (137-145) mmol/L Potassium 2.9 L (3.5-5.1) mmol/L Glucose 151 H (74-99) mg/dL Total Bilirubin 4.0 H (0.2-1.3) mg/dL AST 270 H (17-59) U/L ALT 83 H (4-49) U/L Alkaline Phosphatase 170 H (38-126) U/L Assessment and Plan Assessment: * Seizure disorder, probably due to alcohol withdrawal. Patient has presented with recurrent seizures. Patient has history of 3-4 seizures in the past, rule out seizure disorder. * Alcoholism, came with alcohol intoxication * Hypokinemia * Elevated liver enzymes, likely due to alcoholism * History of fall with jaw fracture at age 5-6. * Macrocytosis Plan: * MRI Brain w/ and w/o: Reported as minimal nonspecific white matter changes. No abnormal enhancement or enhancing masses are noted. Definite seizure focus not clearly seen. * Routine EEG: Preliminary report is normal. * Watch for delirium tremens. Continue folate, thiamine and multivitamin. * Patient informed by Dr. Stewart of [place] state law of no driving unless seizure free for 6 months, climbing ladders, operate dangerous machinery or unsupervised swimming. Will continue to monitor. The plan is discussed with patient and his nurse. Time with Patient: Less than 30
--- NOTE | 2023-03-02 22:02 | EEG ---
ELECTROENCEPHALOGRAM REPORT CLINICAL HISTORY: This is a 37-year-old gentleman with a seizure. The video EEG is obtained to evaluate for seizure epileptiform activity. RELEVANT MEDICATION: Ativan. EEG TYPE: A routine 21-channel EEG is performed with video using the 10/20 electrode placement system. DESCRIPTION: Wakefulness is only obtained. During awake state, the posterior-dominant rhythm consists of [id number] voltage of 9 hertz activity that is well modulated, well sustained. There is no physiological stage 2 sleep architecture. There is no focal slowing. Interictal and ictal is none. ACTIVATION PROCEDURE: Photic stimulation did evoke a posterior driving response at multiple low flash frequencies. There is no abnormality during the photic stimulation. Hyperventilation is not performed. CLINICAL INTERPRETATION: This is a normal routine EEG. There is no focal slowing, epileptiform discharge, or seizure on the EEG. A normal routine EEG does not rule out underlying epilepsy. Clinical correlation is recommended. MMCINDY / BECKYN: [id number] /
[2023-03-02] MEDS: traZODone HCL 50 MG TAB PO PRN (23:58)
--- NOTE | 2023-03-03 05:48 | P.PN ---
Subjective Progress Note Date: 03/02/23 This is a pleasant 37 years old male with past medical history of alcohol abuse, alcohol withdrawal and alcohol withdrawal seizure pt has been drinking alcohol for about more than 20 years as he explains , last time he was sober was about last December, since then he resumed drinking, drinks about 1 pint of liquor every day, until 2 days ago when he started having vomiting for anything even sip of water , he was vomiting all day long with no blood, no abdominal pain except when throwing up, no bowel movement which is expected Yesterday he started drinking again went he developed more severe vomiting. But WHAT struck him to come to emergency room is that he developed clonic tonic generalized seizure. Associated with oral, if so are felt snowballs lying in the front of his eyes a few minutes before the seizure, he denies tongue biting or urine or bowel incontinence. But he thinks it lasted more than 40 minutes (his father called him and told him this) which is longer than usual, usually he states it lasts 4-5 minutes. He states that he had 4-5 alcohol withdrawal seizures before similar to this one but there were shorter, also he has aura of snowballs vision prior to the seizure He has mild frontal headache, no neck stiffness, he denies sinusitis symptoms but he has some cough with chronic phlegm from his smoking, he had some mild sore throat probably from vomiting. This resolved now. He denies urinary symptoms, no dizziness, no extremity weakness or numbness. He has chronic tingling in his feet for more than a year. No blurred vision or slurred speech. Patient conference signs and symptoms of depression but he denies suicidal or homicidal ideation, he denies hallucination or delusions. He does not think he needs to see psychiatrist Patient is hemodynamically stable, afebrile No signs of SIRS, no leukocytosis. Hemoglobin 14.2. Platelet count 37 Creatinine and sodium are normal. Potassium is 2.7 and 2.5. Magnesium 2.1 and 1.7. Total bilirubin is elevated to 3.5 and 3.3, AST 374 and 317, ALT 93. (Ratio of AST> ALT is more than 1.5:1) of vomiting 4.1 03/02/2023 Patient is seen and evaluated in follow-up this morning currently maintained on CIWA protocol although has not required any Ativan per nursing staff. Patient reports to feeling improved currently awaiting an MRI of the brain along with EEG with neurology following. There has been no seizure-like activity noted. Patient also reports he is awaiting GI consultation for abnormal lab values. Discussed we currently do not have GI service available and there is no need for transfer at this time. Patient to follow-up with GI in the outpatient setting and refrain from any alcohol use or exposure. Patient is afebrile denies chest pain or shortness of breath. Patient reports some mild abdominal discomfort although tolerating diet. Patient has been up and walking to the bathroom. Will await neurology clearance with possible discharge in 24 hours pending MRI of the brain and EEG Review of systems: Constitutional: No reports of fatigue, fever, or chills Cardiovascular: No reports of chest pain or palpitations Respiratory: No reports of shortness of breath or cough GI: No reports of nausea, vomiting, or diarrhea, reports occasional abdominal discomfort : No reports of dysuria or retention Neurovascular: No reports of weakness or numbness All medications have been reviewed Active Medications Acetaminophen (Acetaminophen Tab 325 Mg Tab) 650 mg PO Q6HR PRN PRN Reason: Fever and/ or Pain Folic Acid (Folic Acid 1 Mg Tab) 1 mg PO DAILY [facility] Last Admin: 03/02/23 09:12 Dose: 1 mg Sodium Chloride (Saline 0.9%) 1,000 mls @ 75 mls/hr IV .[id number] [facility] Last Admin: 03/02/23 11:29 Dose: 75 mls/hr Lorazepam (Lorazepam 2 Mg/Ml Inj) 1 mg IV Q1HR PRN PRN Reason: CIWA 10 to 15 Last Admin: 03/01/23 08:18 Dose: 1 mg Lorazepam (Lorazepam 2 Mg/Ml Inj) 1 mg IV Q2HR PRN PRN Reason: CIWA 8 or 9 Last Admin: 03/02/23 15:55 Dose: 1 mg Lorazepam (Lorazepam 2 Mg/Ml Inj) 2 mg IV Q10M PRN PRN Reason: CIWA 16 or higher Stop: 03/02/23 21:33 Miscellaneous Information (Magnesium Replacement Protocol 1 Each Misc) 1 each MISCELLANE DAILY PRN; Protocol PRN Reason: Per Protocol Miscellaneous Information (Potassium Replacement Protocol 1 Each Misc) 1 each MISCELLANE DAILY PRN; Protocol PRN Reason: Per Protocol Multivitamins (Multivitamins, Thera 1 Each Tab) 1 each PO DAILY [facility] Last Admin: 03/02/23 09:12 Dose: 1 each Naloxone HCl (Naloxone 0.4 Mg/Ml 1 Ml Vial) 0.2 mg IV Q2M PRN PRN Reason: Opioid Reversal Nicotine (Nicotine 21mg/24hr Patch) 1 patch TRANSDERM DAILY [facility] Last Admin: 03/02/23 09:12 Dose: 1 patch Ondansetron HCl (Ondansetron 4 Mg/2 Ml Vial) 4 mg IVP Q6HR PRN PRN Reason: Nausea And Vomiting Pantoprazole Sodium (Pantoprazole 40 Mg/10 Ml Vial) 40 mg IVP DAILY [facility] Last Admin: 03/02/23 09:45 Dose: 40 mg Thiamine HCl (Thiamine 100 Mg Tab) 100 mg PO BID [facility] Last Admin: 03/02/23 09:12 Dose: 100 mg Trazodone HCl (Trazodone Hcl 50 Mg Tab) 50 mg PO HS PRN PRN Reason: Insomnia Last Admin: 03/01/23 23:32 Dose: 50 mg Physical Exam: GENERAL: The patient is alert and oriented x3, not in any acute distress. Well developed, well nourished. HEENT: Pupils are round and equally reacting to light. EOMI. No scleral icterus. No conjunctival pallor. Normocephalic, atraumatic. No pharyngeal erythema. No thyromegaly. CARDIOVASCULAR: S1 and S2 present. No murmurs, rubs, or gallops. PULMONARY: Chest is clear to auscultation, no wheezing or crackles. -ABDOMEN: Soft, epigastric and right upper quadrant tenderness, nondistended, normoactive bowel sounds. No palpable organomegaly. MUSCULOSKELETAL: No joint swelling or deformity. EXTREMITIES: No cyanosis, clubbing, or pedal edema. NEUROLOGICAL: Gross neurological examination did not reveal any focal deficits. SKIN: No rashes. no petechiae. Assessment: Alcoholic hepatitis with elevated AST more than ALT and elevated bilirubin more than 3, and epigastric tenderness, trending down and improving Alcohol intoxication, at-risk of alcohol withdrawal delirium tremens Seizure-like activity, Most likely patient had Alcohol withdrawal seizure, because patient reports a longer duration of seizure Recurrent vomiting most likely alcoholic gastritis and alcoholic hepatitis, improved Severe hypokalemia, replaced Chronic tingling in feet most likely peripheral neuropathy related to his alcohol use. Hypokalemia and mild hypomagnesemia secondary to alcoholic affect, improved Severe thrombocytopenia was likely secondary to alcohol effect GI prophylaxis, DVT prophylaxis Full code Plan: Continue with CIWA protocol. Patient has not been requiring Ativan per nursing staff and not actively having withdrawals Neurology was consulted to evaluate for seizure-like activity and EEG along with MRI of the brain was done which was normal Patient did have some elevated liver functions most likely secondary to alcohol abuse and will not be requiring transfer at this time and will follow-up with GI in the outpatient setting Recommend to refrain from any alcohol use or exposure Prognosis is guarded Discharge in 24 hours and will provide resources to follow-up outpatient with GI. Again stressed the importance of refraining from any alcohol intake or exposure and discussed alcohol rehab The impression and plan of care has been dictated by Salma Morocho, Nurse Practitioner as directed. Dr. Ramses MD I have performed a history and examination and MDM of this patient, discussed the same with the dictator, and agree with the dictator's assessment and plan as written ,documented as a scribe. Based on total visit time, I have performed more than 50% of the visit. Objective - Vital Signs Vital signs: Vital Signs Temp 98.1 F 03/02/23 08:00 Pulse 78 03/02/23 08:18 Resp 16 03/02/23 08:00 BP 137/83 03/02/23 08:00 Pulse Ox 100 03/02/23 08:00 FiO2 Intake & Output 03/01/23 03/02/23 03/02/23 18:59 06:59 18:59 Intake Total 480 250 Balance 480 250 Intake: IV 20 Invasive Line 1 20 Oral 480 230 Other: Voiding Method Toilet Toilet # Voids 4 2 2 - Labs CBC & Chem 7: 02/28/23 20:30 03/02/23 06:52 Labs: Abnormal Lab Results - Last 24 Hours (Table) 03/01/23 Range/Units 18:01 Sodium 135 L (137-145) mmol/L Potassium 2.9 L (3.5-5.1) mmol/L Glucose 151 H (74-99) mg/dL Total Bilirubin 4.0 H (0.2-1.3) mg/dL AST 270 H (17-59) U/L ALT 83 H (4-49) U/L Alkaline Phosphatase 170 H (38-126) U/L
[2023-03-03 07:39] VITALS: TEMP 97.8
[2023-03-03] MEDS: FOLIC ACID 1 MG TAB PO SCH (08:10)
[2023-03-03] MEDS: NICOTINE 21MG/24HR PATCH TRANSDERM SCH (08:10)
[2023-03-03] MEDS: MULTIVITAMINS, THERA 1 EACH TAB PO SCH (08:10)
[2023-03-03] MEDS: SODIUM CHLORIDE 0.9% 1,000 ML IV SCH (08:10)
[2023-03-03] MEDS: THIAMINE 100 MG TAB PO SCH (08:10)
[2023-03-03] MEDS: PANTOPRAZOLE 40 MG/10 ML VIAL IVP SCH (08:10)
--- NOTE | 2023-03-03 08:34 | US ---
EXAMINATION TYPE: US liver DATE OF EXAM: 03/01/2023 COMPARISON: NONE CLINICAL INDICATION: Male, 37 years old with history of liver hepatitis; Pain TECHNIQUE: Multiple sonographic images of the right upper quadrant are obtained. FINDINGS: EXAM MEASUREMENTS: Liver Length: 20.2 cm Gallbladder Wall: .2 cm CBD: .6 cm Right Kidney: 10.7 x 5.1 x 4.4 cm EPOXY COATINGS INSTALLER NOTES: Pancreas: Tail obscured by overlying bowel gas Liver: Hepatomegaly Increased attenuation heterogenous Gallbladder: No stones seen Evidence for sonographic Montes's sign: No CBD: upper limits Right Kidney: wnl IMPRESSION: Hepatomegaly with underlying hepatic steatosis.
[2023-03-03 09:18] VITALS: RESP 16
[2023-03-03 09:25] LABS: ALT 122 U/L (4-49); AST 304 U/L (17-59); African American GFR (CKD) >90 (>60 ml/min/1.73 sqM); Albumin 3.7 g/dL (3.5-5.0); Alkaline Phosphatase 184 U/L (38-126); Anion Gap 8 mmol/L; Blood Urea Nitrogen 10 mg/dL (9-20); Calcium 8.5 mg/dL (8.4-10.2); Carbon Dioxide 22 mmol/L (22-30); Chloride 109 mmol/L (98-107); Glucose 106 mg/dL (74-99); Non-African American GFR(CKD) >90 (>60 ml/min/1.73 sqM); Potassium 2.8 mmol/L (3.5-5.1); Sodium 139 mmol/L (137-145); Total Bilirubin 3.3 mg/dL (0.2-1.3); Total Protein 6.9 g/dL (6.3-8.2)
[2023-03-03] MEDS: POTASSIUM CHLORIDE ER 20 MEQ TAB.ER PO SCH ×3 (09:56→11:36)
[2023-03-03] MEDS ORDERED: POTASSIUM CHLORIDE ER 20 MEQ TAB.ER PO STA (10:47)
[2023-03-03 11:16] VITALS: BP 129/87; PULSE 85
--- NOTE | 2023-03-05 06:34 | P.DS ---
Providers Date of admission: 02/28/23 21:33 Expected date of discharge: 03/03/23 Attending physician: Wendy Pearce Consults: 03/01/23 11:00 Consult Physician Urgent Consulting Provider: Yaa Stewart Consult Reason/Comments: seizure Do you want consulting provider notified?: Yes Primary care physician: Diann Bates [facility] Course: Final diagnosis Discharge disposition Patient is being discharged in a stable condition with guarded prognosis to home. Patient will follow-up with PCP in the outpatient setting upon discharge. Resources were provided for new primary care provider although patient reports he cannot remember the name but does have an appointment this following Thursday with her primary care provider already. Patient is to continue with potassium and magnesium supplementation outpatient labs in the next few days. Total time taken is greater than 35 minutes. Hospital course This is a 37-year-old male who was recently admitted with acute alcohol intoxication with concerns for seizure-like activity. Most likely alcohol induced and also with elevated LFTs. Patient was maintained on CIWA protocol and underwent neurological evaluation and MRI of the brain was negative. Patient was counseled on alcohol abuse and need for rehab and also to establish with primary care provider. Patient reports he does have a primary care provider and an appointment this week but could not remember the name. Patient has been cleared by consultations for discharge. Please refer to other consultation notes for further HPI. Recommend follow-up labs in the outpatient setting to monitor electrolytes potassium and magnesium replaced and discharge. Currently no reports of chest pain, shortness of breath, or palpitations. Patient is afebrile. No reports of nausea or vomiting and patient is tolerating diet. Patient will be discharged home today. Guarded prognosis and high risk for readmission due to noncompliance and continued alcohol abuse Physical exam: Gen: This is a 37-year-old male who is awake, alert and oriented 3, well- developed, well-nourished HEENT: Head is atraumatic, normocephalic. Pupils equal, round. Sclerae is anicteric. NECK: Supple. No JVD. No lymphadenopathy. No thyromegaly. LUNGS: Clear to auscultation. No wheezes or rhonchi. No intercostal retractions. HEART: Regular rate and rhythm. No murmur. ABDOMEN: Soft. Bowel sounds are present. No masses. No tenderness. EXTREMITIES: No pedal edema. No calf tenderness. NEUROLOGICAL: Patient is awake, alert and oriented x3. Cranial nerves 2 through 12 are grossly intact. Please refer to medication reconciliation sheet for a list of medications. The impression and plan of care has been dictated by Salma Morocho, Nurse Practitioner as directed. Dr. Gerald MD I have performed a history and examination and MDM of this patient, discussed the same with the dictator, and agree with the dictator's assessment and plan as written ,documented as a scribe. Based on total visit time, I have performed more than 50% of the visit. Patient Condition at Discharge: Stable Plan - Discharge Summary Discharge Rx Participant: No New Discharge Prescriptions: New Folic Acid 1 mg PO DAILY #30 tab Nicotine 21Mg/24Hr Patch [Habitrol] 1 patch TRANSDERM DAILY #30 patch Acetaminophen Tab [Tylenol] 650 mg PO Q6HR PRN tab PRN Reason: Fever And/ Or Pain Multivitamins, Thera [Multivitamin (formulary)] 1 each PO DAILY #30 tab Thiamine [Vitamin B-1] 100 mg PO BID #60 tab Magnesium Oxide [Magox 400] 400 mg PO DAILY #30 tab Potassium Chloride 20 meq PO DAILY #60 cap Continue ALPRAZolam [Xanax] 0.25 mg PO BID PRN PRN Reason: Anxiety Discharge Medication List ALPRAZolam [Xanax] 0.25 mg PO BID PRN 02/28/23 [History] Acetaminophen Tab [Tylenol] 650 mg PO Q6HR PRN tab 03/03/23 [Rx] Folic Acid 1 mg PO DAILY #30 tab 03/03/23 [Rx] Magnesium Oxide [Magox 400] 400 mg PO DAILY #30 tab 03/03/23 [Rx] Multivitamins, Thera [Multivitamin (formulary)] 1 each PO DAILY #30 tab 03/03/23 [Rx] Nicotine 21Mg/24Hr Patch [Habitrol] 1 patch TRANSDERM DAILY #30 patch 03/03/23 [Rx] Potassium Chloride 20 meq PO DAILY #60 cap 03/03/23 [Rx] Thiamine [Vitamin B-1] 100 mg PO BID #60 tab 03/03/23 [Rx] Follow up Appointment(s)/Referral(s): Renetta Underwood MD [STAFF PHYSICIAN] - 03/10/23 2:00 pm Sonya River MD [STAFF PHYSICIAN] - 1 Week (Give office a call at above num [phone]; you will have to speak with a home care chaplain prior to being able to schedule an appointment.) Alla Pablo MD [Medical Doctor] - 1 Week (Office not available via phone at this time; please call office for follow up appointment scheduling.) Patient Instructions/Handouts: Hypokalemia (DC), Alcohol Intoxication (DC), Hypomagnesemia (DC) Activity/Diet/Wound Care/Special Instructions: activity limited until follow-up Follow-up primary care provider on discharge and establish Follow-up neurology outpatient Avoid all alcohol intake Follow-up GI outpatient Discharge Disposition: HOME SELF-CARE
== END 2023-03-03 13:02 | disposition home or self-care (01) | DRG 241 ==
LOC: EC 19:39 → 3SCARD 21:33
PROVIDERS: ADMIT Internal Medicine; ATTEND Internal Medicine
DX: K29.20 Alcoholic gastritis without bleeding (principal); F10.288 Alcohol dependence with other alcohol-induced disorder; F10.229 Alcohol dependence with intoxication, unspecified; Y90.8 Blood alcohol level of 240 mg/100 ml or more; D69.59 Other secondary thrombocytopenia; D75.89 Other specified diseases of blood and blood-forming organs; E83.42 Hypomagnesemia; E87.6 Hypokalemia; F10.239 Alcohol dependence with withdrawal, unspecified; F14.10 Cocaine abuse, uncomplicated; F12.10 Cannabis abuse, uncomplicated; F11.10 Opioid abuse, uncomplicated; F20.9 Schizophrenia, unspecified; F41.9 Anxiety disorder, unspecified; G40.89 Other seizures; I10 Essential (primary) hypertension; K70.10 Alcoholic hepatitis without ascites; Z91.81 History of falling; Z87.820 Personal history of traumatic brain injury; Z28.310 Unvaccinated for COVID-19; Z28.21 Immunization not carried out because of patient refusal; Z79.899 Other long term (current) drug therapy
CPT/HCPCS: 36415; 70553; 76705; 80048; 80053; 80320; 83735; 85025; 85610; 93005; 94760; 95816; 96361; 96372; 96374; 96375; 99285